=== PATIENT | female | born 1975 | race Caucasian/White ===

== ENCOUNTER 2016-11-18 13:44 | Emergency (ER) | payer OTHER ==
[~2016-11-18 13:44] MED LIST: ADVAIR DISKUS INH; ATIVAN1 MG PO; ATROVENT 0.06% IN; COMBIVENT RESPIMAT IN; FUROSEMIDE20 MG PO; HYDROCHLOROTH12.5 MG PO; LISINOPRIL20 MG PO; METFORMIN HCL500 MG PO; METOLAZONE5 MG PO; MULTIPLE VITAMIN PO; NEXIUM20 M1 PO; PERCOCET1 TA1 PO; PHENERGAN12.5 M1 PR; POTASSIUM CHLO10 ME2 PO; PREDNISONE10 MG PO; SEROQUEL100 MG PO; SINGULAIR10 M1 PO; SINGULAIR10 MG PO; SUBOXONE1 MI1 PO; TRILEPTAL600 MG PO; VENTOLIN HFA IN; VITAMIN D350000 UNIT PO; ZOFRAN ODT4 MG PO; ZYRTEC ALLERGY10 MG PO; antihypertensive
--- NOTE | 2016-11-18 14:48 | DIAGNOSTIC IMAGING REPORT ---
PROCEDURE: XR CHEST 2 VIEW INDICATION: COUGH TECHNIQUE: PA and lateral views. COMPARISON: None. FINDINGS: Right lower lobe infiltrate. Heart and mediastinum are normal. Thorax is normal. IMPRESSION: 1. Right lower lobe infiltrate.
--- NOTE | 2016-11-18 15:26 | ED NURSING NOTES ---
Clinical Report - Nurses [facility] [address] [place] [address] 11/18/2016 13:45 Patient: GEOVANNY FANG TRIAGE Triage time 1351 PM. Acuity: LEVEL 4. Chief Complaint: SHORTNESS OF BREATH, DIFFICULTY BREATHING, "ASTHMA ATTACK" and WHEEZING. Alert. No acute distress. LUCERO COMA SCORE: Lucero Coma Scale: 15- eyes open spontaneously (4); best verbal response- oriented x 4 (5); best motor response- obeys commands (6). --14:05 Coreen Quiros R.N. 13:54 11/18/16. BP: 154/96. HR: 111. RR: 22. O2 saturation: 92% on room air. Temp: 98.1 F (oral). Pain level now: 7/10. Additional comments: H/A. --14:05 Coreen Quiros R.N. Weight: 204.1 kg stated. Height/Length: 65 inches Per Patient. BMI: 75. --13:59 Coreen Quiros R.N. Medications Ativan Oral 1 mg, PRN. Atrovent HFA Inhalation. Metolazone Oral (Tablet 5 mg) 1 tablet, daily, started 06/21/16. Metolazone Oral (started yesterday). Phenergan (Promethazine) Rectal, as needed. Potassium Chloride ER Oral (Capsule Extended Release 10 meq) 1 capsule, daily. Seroquel Oral 300 mg, at bedtime. Singulair Oral 10 mg, daily. Suboxone Sublingual (Film 8-2 mg) 2 strips daily ("Is too strong, I only take 0.5 strip"). --13:57 Coreen Quiros R.N. Trileptal Oral 600 mg x 2 , at bedtime. Ventolin HFA Inhalation. Zofran Oral 4 mg, PRN. Zyrtec Oral 10 mg, daily. --13:57 Coreen Quiros R.N. Medication/allergy information source: the patient. --14:05 Coreen Quiros R.N. Allergies Bactrim. Definite Severe(swelling) Penicillins. Possible (Uncertain reaction--happened when very young) Sulfa Drugs. Side-Effect Severe(swelling) Theophylline. Definite Moderate (Racing HR) --13:57 Coreen Quiros R.N. History Arrived by EMS. Historian: patient. Primary [facility] ([facility] ( Pt states feeling sick for the past 3 days, with chills, fevers 101 abdominal pain, vomiting, diarrhea, with a headache. Came in by EMS due to symptoms getting worse with breathing.). Onset. (3 days). She has had fever, chills, a cough and wheezing. 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 EMS report reviewed. See report. Oxygen administered by nonrebreather mask and at 11 liters/minute. Pulse oximeter applied (100). PAST MEDICAL HX: Immunizations: up-to-date. Last normal menstrual period- 2 months IRREGULAR. No contraception. SOCIAL HX: Former smoker, end date 10/04/2013 (chewing tabocco). History of weekly drug use: marijuana. Recently used drugs yesterday. No alcohol use. She has not traveled outside the [place] ABUSE ASSESSMENT: No report of abuse. SELF HARM ASSESSMENT: A self harm assessment was performed. The patient answered "no" to the question "Do you have thoughts of harming or killing yourself?" and "Have you recently had thoughts about harming or killing others?". FALL RISK ASSESSMENT: Fall risk assessment completed. No fall risk identified. NUTRITIONAL RISK ASSESSMENT: The nutritional risk assessment revealed no deficiencies. FUNCTIONAL ASSESSMENT: Functional assessment: no impairments noted. LEARNING NEEDS ASSESSMENT: The learning needs assessment revealed no barriers. SKIN INTEGRITY ASSESSMENT: Skin integrity risk assessment completed. No skin integrity risk identified. --14:05 Coreen Quiros R.N. PROBLEMS: Hypomagnesemia. Diverticulitis. Muscle Spasm. Hypokalemia. Unstable Angina. Myocardial Infarction. Coronary Artery Disease. Lower Extremity Pain. Dizziness. Narcotic Withdrawal. Palpitations. Chest Pain. Lung Disease. Asthma. Depression. Diarrhea. Candidiasis. Hyponatremia. Vomiting. Pulmonary Hypertension. Gastroenteritis. Ovarian Cyst. Gastroesophageal Reflux Disease. Tension-Type Headache. Chest Wall Pain. COPD - Chronic Obstructive Pulmonary Disease. Hypertension. Constipation. Obesity. Abdominal Pain. Bipolar Disorder. Gastroesophageal Reflux. Environmental Allergies. Chronic Back Pain. Gallstone(s). Diabetes Mellitus. Immunizations. LNMP - Last Normal Menstrual Period. --13:58 Coreen Quiros R.N. ADDITIONAL SURGERIES: Cholecystectomy. --13:58 Coreen Quiros R.N. Interventions ID band on patient. --14:05 Coreen Quiros R.N. PHYSICAL ASSESSMENT To room via stretcher. GENERAL / NEURO / PSYCH: Alert. Oriented X 4. Appears in no acute distress. Appears anxious. HEENT: Mucous membranes are pink. RESPIRATORY: Mild respiratory distress. The patient can speak a few words at a time. Accessory muscle use. Decreased breath sounds in the bases bilaterally. CVS: Capillary refill less than 2 seconds. GI / : Abdomen soft and nontender. Bowel sounds within normal limits. SKIN: Skin is warm and dry. Normal skin turgor. --14:06 Coreen Quiros R.N. NURSING PROGRESS NOTES The initial plan of care for this patient has been created This plan of care was discussed with the patient. Oxygen administered by nasal cannula at 2 liters. Pulse oximeter and NIBP monitor placed on patient. Patient gowned. Reassurance given. Reassessment after oxygen administered. Two patient identifiers checked. Call light placed in reach. Side rails up x 1. Bed placed in lowest position. Brakes of bed on. --14:07 Coreen Quiros R.N. 14:06 11/18/16. HR: 105. RR: 18. O2 saturation: 95% on nasal cannula at 2 liters/minute. Pain level now: 10. --14:07 Coreen Quiros R.N. 14:25 11/18/2016 Site #1 started via IV in the right hand with an 22g angiocath; one attempt. Saline lock flushed with 10 mL saline. --14:35 Coreen Quiros R.N. 14:30 11/18/2016 SOLU-MEDROL (MethylPREDNISolone Sodium Succ) IVP 125 mg given over 2 minute(s) via site #1. Allergies verified and confirmed 5 rights. IV patency established. IV site checked: no pain, redness, or swelling. IV flushed thoroughly pre- and post-medication administration. IVP given by RN. --14:35 Coreen Quiros R.N. 14:30 11/18/2016 ALBUTEROL NEB W ATROVENT Neb TX 1 unit dose given. Given by the respiratory therapist. --14:45 Gingerluis enriqueCassius 14:40 11/18/2016 Albuterol Neb TX 2 unit dose given. Given by the respiratory therapist. --14:46 Cassius Norton 14:53 11/18/2016 Toradol IVP 30 mg given over 1 minute(s) via site #1. Allergies verified and confirmed 5 rights. IV patency established. IV site checked: no pain, redness, or swelling. IV flushed thoroughly pre- and post-medication administration. IVP given by RN. --14:53 Coreen Quiros R.N. 15:07 11/18/2016 Started 1 gm of Ceftriaxone IVPB in bag #1 50 mL; at 150 mL/hr over 30 minute(s) via site #1 via IV pump. Allergies verified and confirmed 5 rights. IV patency established. IV site checked: no pain, redness, or swelling. IV flushed thoroughly pre- and post-medication administration. --15:07 Coreen Quiros R.N. 15:07 11/18/2016 Toradol IVP Response: no adverse reaction symptoms have improved the patient feels better. --15:07 Coreen Quiros R.N. Pulse oximeter and NIBP monitor placed on patient. Reassurance given. Reassessment after oxygen administered and intervention. She has had no adverse reaction. 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 H/A down to a 3/10 pain, "breathing better" ceftriaxone infusing as ordered). RESPIRATORY: Denies difficulty breathing. No orthopnea. SKIN: Skin is warm. Skin color within normal limits. Call light placed in reach. --15:10 Coreen Quiros R.N. 15:07 11/18/16. BP: 132/79. HR: 110. RR: 18. O2 saturation: 96% on nasal cannula at 3 liters/minute. Pain level now: 3/10. --15:10 Coreen Quiros R.N. 15:36 11/18/2016 Ceftriaxone IVPB Discontinued: bag #1 completed. Total amount infused: 50 mL. IV patency established. IV site checked: no pain, redness, or swelling. IV flushed thoroughly. --15:41 Coreen Quiros R.N. 15:41 11/18/2016 Started bag #1 1000 mL IV Fluids IV NS (Saline); at 1000 mL/hr over 1 hour(s) via site #1 via IV pump. Allergies verified and confirmed 5 rights. IV patency established. IV site checked: no pain, redness, or swelling. IV flushed thoroughly pre- and post-medication administration. --15:41 Coreen Quiros R.N. Pulse oximeter and NIBP monitor placed on patient. Reassurance given. Reassessment after oxygen and fluids administered. She has had no adverse reaction. Overall patient status is improved- she states feels better. RESPIRATORY: Denies difficulty breathing. Call light placed in reach. --15:42 Coreen Quiros R.N. 15:41 11/18/16. BP: 110/70 (regular adult cuff) taken on the left arm, via an automated monitor, while lying. HR: 104. RR: 16. O2 saturation: 93% on room air. Pain level now: 11/28. --15:42 Coreen Quiros R.N. 16:38 11/18/16. BP: 133/87 (regular adult cuff) taken on the left arm, via an automated monitor, while sitting. HR: 90. RR: 18. O2 saturation: 98%. Pain level now: 10/31. --16:39 Coreen Quiros R.N. Pulse oximeter and NIBP monitor placed on patient. Reassurance given. Reassessment after oxygen administered and medication administered. She has had no adverse reaction. Overall patient status is improved- she states feels worse. GENERAL / NEURO / PSYCH: The patient reports anxiety. RESPIRATORY: The patient reports difficulty breathing. Decreased breath sounds in the bases bilaterally. CVS: Denies chest pain. Two patient identifiers checked. Call light placed in reach. --16:39 Coreen Quiros R.N. 16:49 11/18/2016 IV Fluids IV NS Discontinued: bag #1 completed upon discharge. Total amount infused: 1000 mL. IV patency established. IV site checked: no pain, redness, or swelling. IV flushed thoroughly. --16:54 Coreen Quiros R.N. DISPOSITION / DISCHARGE 16:52 11/18/2016 Site #1 removed upon discharge. Manual pressure and bandaid applied. --16:52 Coreen Quiros R.N. Departure time: 1653 PM. Condition at departure: improved and stable. The goals identified in the patient's plan of care were met. No learning barriers present. Discharge instructions provided and reviewed with the patient. Reviewed warnings (s/s of infection on LLE). Reviewed medication(s) side effects, precautions, dosing and course information. Prescription(s) given to the patient. Reviewed need for increased fluid intake. Activity restrictions (rest) reviewed. Patient verbalized understanding. Written instructions provided in French. The patient was discharged by the nurse practitioner. She was discharged home and accompanied by spouse. She left the Emergency Department ambulatory and via private vehicle. Spouse driving. FALL RISK ASSESSMENT: Fall risk assessment completed. No fall risk identified. LUCERO COMA SCORE: Lucero Coma Scale: 15- eyes open spontaneously (4); best verbal response- oriented x 4 (5); best motor response- obeys commands (6). --16:53 Coreen Quiros R.N. 16:51 11/18/16. BP: 148/88. HR: 100. RR: 18. O2 saturation: 99% on room air. Temp: 98.2 F (oral). Pain level now: 10/31. --16:53 Coreen Quiros R.N. Locked/Released at 11/18/2016 16:54 by Coreen Quiros R.N.
--- NOTE | 2016-11-18 15:26 | ED ORDER SUMMARY ---
..... Patient: GEOVANNY FANG OrderSheet [facility] VisitID: [id number] [place] [address] 41y, F Registration Date/Time: 11/18/2016 ORDER SHEET Weight: 204.1 kg (stated) Allergies: Bactrim, Penicillins, Sulfa Drugs, Theophylline GENERAL ORDERS: Chest 2V Urgent (14:06 11/18/2016 HBivens A.R.N.P.) (Ack 14:08 KHoerner) (14:14 EHassan R.N.) CBC w Diff Urgent (14:11/18/2016 HBivens A.R.N.P.) (Ack 14:08 KHoerner) (14:14 EHassan R.N.) CMP Urgent (14:11/18/2016 HBivens A.R.N.P.) (Ack 14:08 KHoerner) (14:14 EHassan R.N.) BNP Urgent (14:11/18/2016 HBivens A.R.N.P.) (Ack 14:08 KHoerner) (14:14 EHassan R.N.) MEDICATION ORDERS: Albuterol Neb w Atrovent 1 unit dose (NOW) (14:06 11/18/2016 HBivens A.R.N.P.) (Ack 14:15 KHoerner) (14:45 DBourey) Albuterol Neb Tx 2 unit doses (NOW) (14:11/18/2016 HBivens A.R.N.P.) (Ack 14:15 KHoerner) (14:46 DBourey) IV FLUIDS: IV Saline Lock (14:06 11/18/2016 HBivens A.R.N.P.) (14:35 EHassan R.N.) Solu-MEDROL IV 125 mg (NOW) (14:06 11/18/2016 HBivens A.R.N.P.) (14:35 EHassan R.N.) Toradol IV 30 mg (NOW) (14:52 11/18/2016 EHassan R.N. verbal order read back to HBivens A.R.N.P.) (14:53 Elena R.N.) Ceftriaxone IV 1 gm/50mL (NOW) (14:56 11/18/2016 HBivens A.R.N.P.) (15:07 Elena R.N.) IV NS : initial bolus 1000 mL (1000 mL/hr), then none - (NOW) (15:25 11/18/2016 HBivens A.R.N.P.) (15:41 Elena R.N.) ORDER SHEET NOTES: [Electronically signed by Coreen Quiros R.N. (16:54 11/18/2016)] [Electronically signed by Anny SilvermanRLottieN.PLottie (17:01 11/18/2016)] [Electronically locked/signed by Coreen Quiros R.N. (16:54 11/18/2016)]
--- NOTE | 2016-11-18 15:26 | ED CLINICAL REPORT ---
Clinical Report - Physicians/Mid Levels [facility] [address] [place] [address] 11/18/2016 13:45 Patient: GEOVANNY FANG Time Seen: 14:00; initial patient contact, initial documentation, patient care assumed. Arrived- By ambulance. Historian- patient. HISTORY OF PRESENT ILLNESS Chief Complaint: DYSPNEA, WHEEZING and HISTORY OF ASTHMA. This started about 3 days and is still present. The dyspnea is described as moderate. The patient has had a cough. She has had sputum production (can't get it up). See nurses notes for current asthma threapy. Asthma triggers: unknown. Takes asthma medications. Similar symptoms previously: Chronically. Recent medical care: Not recently seen/assessed. REVIEW OF SYSTEMS No nasal discharge or sinus drainage. She has had fever and chills. All systems otherwise negative, except as recorded above. PAST HISTORY See nurses notes. PROBLEMS: Hypomagnesemia. Diverticulitis. Muscle Spasm. Hypokalemia. Unstable Angina. Myocardial Infarction. Coronary Artery Disease. Lower Extremity Pain. Dizziness. Narcotic Withdrawal. Palpitations. Chest Pain. Lung Disease. Asthma. Depression. Diarrhea. Candidiasis. Hyponatremia. Vomiting. Pulmonary Hypertension. Gastroenteritis. Ovarian Cyst. Gastroesophageal Reflux Disease. Tension-Type Headache. Chest Wall Pain. COPD - Chronic Obstructive Pulmonary Disease. Hypertension. Constipation. Obesity. Abdominal Pain. Bipolar Disorder. Gastroesophageal Reflux. Environmental Allergies. Chronic Back Pain. Gallstone(s). Diabetes Mellitus. Immunizations. LNMP - Last Normal Menstrual Period. --13:58 Coreen Quiros RKatlyn. ADDITIONAL SURGERIES: Cholecystectomy. --13:58 Coreen Quiros R.N. SOCIAL HISTORY Smoker - current status unknown (chews). No alcohol use or drug use. No recent travel. Is a local resident. FAMILY HISTORY Negative. ADDITIONAL NOTES The nursing notes have been reviewed with agreement regarding the chief complaint, HPI, ROS, PMH and patient medications and allergies. PHYSICAL EXAM Vital Signs: 11/18/2016 13:54 BP: 154/96. HR: 111. RR: 22. O2 saturation: 92%. Temp: 98.1 F. Pain level now: 03/30. Have been reviewed as abnormal and appear to be correct. Blood pressure normal. Tachycardic. Respiratory rate normal. Temperature normal. Oxygen saturation low. Appearance: Alert. No acute distress. Eyes: Pupils equal, round and reactive to light. Eyes normal inspection. ENT: Ears normal. Nose normal. Pharynx normal. Uvula midline. Neck: Normal inspection. Neck supple. CVS: Normal heart rate and rhythm. Heart sounds normal. Pulses normal. Respiratory: No respiratory distress. Breath sounds abnormal. Mild bilateral rhonchi present diffusely. Abdomen: Severely obese (morbid). Back: Normal inspection. Skin: Skin warm and dry. Normal skin color. No rash. Normal skin turgor. Extremities: Extremities exhibit normal ROM. No lower extremity edema. Neuro: Oriented X 3. No motor deficit. No sensory deficit. LABS, X-RAYS, AND EKG Chest X-ray: Normal Chest X-Ray. (IMPRESSION: 1. Right lower lobe infiltrate. Electronically Final signed by:Tin Davenport MD 11/18/2016 2:51:47 PM). The X-rays were interpreted by the radiologist and contemporaneously by me. Laboratory Tests: CBC w Diff: (JORDI: 11/18/2016 14:55) ( MsgRcvd 11/18/2016 15:04) Final results Test Result Flag Units (Reference) WHITE BLOOD COUNT 6.9 K/uL (4.5-11.5) RED BLOOD COUNT 4.06 M/uL (4.00-5.20) HEMOGLOBIN 11.7 L gm/dL (12.0-16.0) HEMATOCRIT 34.5 L % (36.0-46.0) MEAN CELL VOLUME 85 fL (80-100) MEAN CORPUSCULAR HGB 29 pg (26-34) MEAN CORPUSCULAR HGB CONC 34 g/dL (31-37) RED CELL DISTRIBUTION WIDTH 16.1 H % (11.6-14.8) PLATELET COUNT 402 H K/uL (150-400) NEUTROPHIL % 78.7 H % (50-75) LYMPH % 14.9 L % (25-40) MONO % 5.8 % (3-14) EOSINOPHIL % 0.1 % (0-4) BASOPHIL % 0.5 % (0-2) BNP: (JORDI: 11/18/2016 14:55) ( AzgRcvd 11/18/2016 15:23) Final results Test Result Flag Units (Reference) B-TYPE NATRIURETIC PEPTIDE 14.8 pg/ml (5-100) CMP: (JORDI: 11/18/2016 14:55) ( MsgRcvd 11/18/2016 15:20) Final results Test Result Flag Units (Reference) GLUCOSE 147 H mg/dL (70-110) BUN 6 L mg/dL (7-18) CREATININE 0.7 mg/dL (0.6-1.3) Estimated GFR >60 mL/min Estimated GFR- >60 mL/min Note: Persistent reduction over 3 months in eGFR<60 mL/min/1.73 m2 defines CKD. Patients with eGFR values>=60 mL/min/1.73 m2 may also have CKD if evidence ofpersistent proteinuria. Additional information may be foundat www.kidney.org. SODIUM 129 L mmol/L (136-145) POTASSIUM 3.9 mmol/L (3.5-5.1) CHLORIDE 92 L mmol/L (98-107) CARBON DIOXIDE 30 mmol/L (21-32) CALCIUM 8.4 L mg/dL (8.5-10.1) TOTAL PROTEIN 6.8 g/dL (6.4-8.2) ALBUMIN 3.1 L g/dL (3.3-5.0) BILIRUBIN, TOTAL 0.5 mg/dL (0.0-1.0) ALKALINE PHOSPHATASE 91 U/L (46-116) AST (SGOT) 19 U/L (15-37) ALT (SGPT) 46 U/L (12-78) . PROGRESS AND PROCEDURES Course of Care: 1430. at bedside to check on pt, nurse reporting cellulitis to L lower leg, L lower leg with mild erythema and warmth 1500. Resp even and unlabored, B breath sounds, B mild rales heard lower lobes. Patient counseled in person regarding the patient's stable condition, test results and diagnosis. 15:26. Differential Diagnosis: I considered viral bronchitis, viral pneumonia, bacterial bronchitis, bacterial pneumonia, pertussis, bronchospasm and lung cancer as a possible cause of cough in this patient. This is a partial list of diagnoses considered. (asthma, flu, viral illness). Disposition: Discharged home in good and improved condition (15:26). Condition: good and stable. CLINICAL IMPRESSION Bronchopneumonia. Vital signs recorded and reviewed; empiric antibiotics given in the ED and prescribed. No hypoxemia, respiratory failure or sepsis. Mild hyponatremia INSTRUCTIONS Alternate Tylenol (Acetaminophen) and Motrin (Ibuprofen) for fever, temperature greater than 101 degrees orally. Take according to label instructions. Avoid tobacco smoke. Warnings: GENERAL WARNINGS: Return or contact your physician immediately if your condition worsens or changes unexpectedly, if not improving as expected, or if other problems arise. Specifically return if problem worsens. Prescription Medications: Prednisone 20 mg: take 3 orally every day for 5 days. Dispense fifteen (15). No refills. Zithromax 250 mg tablets: take 2 orally today, followed by 1 daily for the next 4 days. No refills. Substitution is permissible. Follow-up: Follow up with your doctor in about two days even if well. Call for an appointment. Summary of care provided to patient. Understanding of the discharge instructions verbalized by patient. (Electronically signed by Anny Silverman A.R.N.P. 11/18/2016 17:01)
--- NOTE | 2016-11-18 15:26 | ED ORDER SUMMARY ---
..... Patient: GEOVANNY FANG OrderSheet [facility] VisitID: [id number] [place] [address] 41y, F Registration Date/Time: 11/18/2016 ORDER SHEET Weight: 204.1 kg (stated) Allergies: Bactrim, Penicillins, Sulfa Drugs, Theophylline GENERAL ORDERS: Chest 2V Urgent (14:06 11/18/2016 HBivens A.R.N.P.) (Ack 14:08 KHoerner) (14:14 EHassan R.N.) CBC w Diff Urgent (14:11/18/2016 HBivens A.R.N.P.) (Ack 14:08 KHoerner) (14:14 EHassan R.N.) CMP Urgent (14:11/18/2016 HBivens A.R.N.P.) (Ack 14:08 KHoerner) (14:14 EHassan R.N.) BNP Urgent (14:11/18/2016 HBivens A.R.N.P.) (Ack 14:08 KHoerner) (14:14 EHassan R.N.) MEDICATION ORDERS: Albuterol Neb w Atrovent 1 unit dose (NOW) (14:06 11/18/2016 HBivens A.R.N.P.) (Ack 14:15 KHoerner) (14:45 DBourey) Albuterol Neb Tx 2 unit doses (NOW) (14:11/18/2016 HBivens A.R.N.P.) (Ack 14:15 KHoerner) (14:46 DBourey) IV FLUIDS: IV Saline Lock (14:06 11/18/2016 HBivens A.R.N.P.) (14:35 EHassan R.N.) Solu-MEDROL IV 125 mg (NOW) (14:06 11/18/2016 HBivens A.R.N.P.) (14:35 EHassan R.N.) Toradol IV 30 mg (NOW) (14:52 11/18/2016 EHassan R.N. verbal order read back to HBivens A.R.N.P.) (14:53 Elena R.N.) Ceftriaxone IV 1 gm/50mL (NOW) (14:56 11/18/2016 HBivens A.R.N.P.) (15:07 Elena R.N.) IV NS : initial bolus 1000 mL (1000 mL/hr), then none - (NOW) (15:25 11/18/2016 HBivens A.R.N.P.) (15:41 Elena R.N.) ORDER SHEET NOTES: [Electronically signed by Coreen Quiros R.N. (16:54 11/18/2016)] [Electronically signed by Anny SilvermanRLottieN.PLottie (17:01 11/18/2016)] [Electronically locked/signed by Coreen Quiros R.N. (16:54 11/18/2016)]
--- NOTE | 2016-11-18 17:01 | ED MAR SUMMARY ---
..... Medication Administration Record [facility] [address] [place] [address] Patient: GEOVANNY FANG Visit ID: [id number] 41y, F Weight: 204.1 kg Height/Length: 65 in BMI: 75 ALLERGIES: Bactrim, Penicillins, Sulfa Drugs, Theophylline Given 14:30 11/18/2016 Coreen Quiros R.N. Medication Administered: SOLU-MEDROL [IVP] (METHYLPREDNISOLONE SODIUM SUCC), Dose: 125 mg IVP over 2 minute(s), Site: #1 right hand. Medication Ordered: Solu-MEDROL IV 125 mg (NOW). Given 14:30 11/18/2016 Cassius Norton, Medication Administered: ALBUTEROL NEB W ATROVENT, Dose: 1 unit dose Neb TX. Medication Ordered: Albuterol Neb w Atrovent 1 unit dose (NOW). Given 14:40 11/18/2016 Cassius Norton, Medication Administered: ALBUTEROL [NEB TX], Dose: 2 unit dose Neb TX. Medication Ordered: Albuterol Neb Tx 2 unit doses (NOW). Given 14:53 11/18/2016 Coreen Quiros R.N. Medication Administered: TORADOL [IVP], Dose: 30 mg IVP over 1 minute(s), Site: #1 right hand. Medication Ordered: Toradol IV 30 mg (NOW). Start 15:07 11/18/2016 Coreen Quiros R.N., Stop 15:36 11/18/2016 Coreen Quiros R.N. Medication Administered: CEFTRIAXONE [IVPB], Dose: 1 gm IVPB over 30 minute(s), Rate: 150 mL/hr, Dispensed: 50 mL bag, Site: #1 right hand. Medication Ordered: Ceftriaxone IV 1 gm/50mL (NOW). Start 15:41 11/18/2016 Coreen Quiros R.N., Stop 16:49 11/18/2016 Coreen Quiros R.N. Medication Administered: IV NS (SALINE), Dose: IV Fluids over 1 hour(s), Rate: 1000 mL/hr, Dispensed: 1000 mL bag, Site: #1 right hand. Medication Ordered: IV NS : initial bolus 1000 mL (1000 mL/hr), then none - (NOW).
--- NOTE | 2016-11-18 17:01 | ED DISCHARGE INSTRUCTIONS ---
Patient: GEOVANNY FANG General Instructions [facility] VisitID: [id number] [place] [address] 41y, F Registration Date/Time: 11/18/2016 Bronchopneumonia. Vital signs recorded and reviewed; empiric antibiotics given in the ED and prescribed. No hypoxemia, respiratory failure or sepsis. Mild hyponatremia INSTRUCTIONS Alternate Tylenol (Acetaminophen) and Motrin (Ibuprofen) for fever, temperature greater than 101 degrees orally. Take according to label instructions. Avoid tobacco smoke. Warnings: GENERAL WARNINGS: Return or contact your physician immediately if your condition worsens or changes unexpectedly, if not improving as expected, or if other problems arise. Specifically return if problem worsens. Prescription Medications: Prednisone 20 mg: take 3 orally every day for 5 days. Dispense fifteen (15). No refills. Zithromax 250 mg tablets: take 2 orally today, followed by 1 daily for the next 4 days. No refills. Substitution is permissible. Follow-up: Follow up with your doctor in about two days even if well. Call for an appointment. Summary of care provided to patient. Understanding of the discharge instructions verbalized by patient. ADDITIONAL INFORMATION Pneumonia (Adult) Pneumonia is an infection deep within the lung, in the small air sacs (alveoli). It may be due to a virus or bacteria and is usually treated with an antibiotic. Severe cases require treatment in the hospital. Milder cases can be treated at home. Symptoms usually start to improve during the first2 days of treatment. Home Care: Rest at home for the first 23 days or until you feel stronger. When resuming activity, dont let yourself become overly tired. Avoid exposure to cigarette smoke (yours or others). You may use acetaminophen (Tylenol) or ibuprofen (Motrin, Advil) to control fever or pain, unless another medicine was prescribed. [NOTE: If you have chronic liver or kidney disease or ever had a stomach ulcer or GI bleeding, talk with your doctor before using these medicines.] (Aspirin should never be used in anyone under 18 years of age who is ill with a fever. It may cause severe liver damage.) Your appetite may be poor so a light diet is fine. Keep well hydrated by drinking 68 glasses of fluids per day (water, sport drinks such as Gatorade, sodas without caffeine, juices, tea, soup, etc.). This will help loosen secretions in the lung, making it easier for you to cough up the phlegm (sputum). If you also have heart or kidney disease, check with your doctor before you drink extra amounts of fluids. Finish all antibiotic medicine prescribed, even if you are feeling better after a few days. Follow Up with your doctor in the next 23 days (or as advised) to be sure you are responding properly to the medicine. [NOTE: If you are age 65 or older, or if you have chronic lung disease (asthma, emphysema or COPD), we recommendthe pneumococcal vaccination and a yearlyinfluenzavaccination(flu-shot) every . Ask your doctor about this.] Get Prompt Medical Attention if any of the following occur: Not getting better within the first 48 hours of treatment Increasing shortness of breath or rapid breathing (over 25 breaths/minute) Coughing up blood or increasing chest pain with breathing Fever of 100.4F (38C) oral or higher, not better with fever medication Increasing weakness, dizziness or fainting Increasing thirst or dry mouth Sinus pain, headache or a stiff neck Chest pain not caused by coughing Hyponatremia Hyponatremia means low sodium levels in the blood. This condition most often occurs after prolonged vomiting or diarrhea. It can also result from the use of diuretics (water pills) or drinking excess amounts of water. Mild hyponatremia causes no symptoms. It is only discovered with a blood test. As sodium levels in the blood decreases, symptoms begin to appear. This includes weakness, confusion, muscle cramping and seizures. Home Care: 1) Reduce your daily water intake until the problem is corrected. 2) If you have been taking diuretics, you may be asked to stop taking them for a short time. 3) If you are having symptoms of weakness or confusion, do not drive or operate dangerous machinery until symptoms resolve. Follow Up with your doctor for a repeat blood test within the next week unless told otherwise. Get Prompt Medical Attention if any of the following occur: -- Increasing weakness -- Dizziness -- Irregular heartbeat, extra beats or very fast heart rate -- Fainting spell Fever Control (Adult) A fever is a natural reaction of the body to an illness. In most cases, the temperature itself is not harmful. It actually helps the body fight infections. A fever does not need to be treated unless you feel very uncomfortable. Home Care If you feel warm, check your temperature. If you feel very uncomfortable and your temperature is at or higher than 100.4F (38C) oral, you may take acetaminophen (Tylenol) every 4 to 6 hours. If you cant take or keep down oral medicine, ask your pharmacist for Tylenol suppositories, which you can get without a prescription. If the fever does not respond to acetaminophen within 1 hour, take ibuprofen (Advil or Motrin). If this works, keep taking the ibuprofen every 6 to 8 hours. Note: If you have chronic liver or kidney disease or ever had a stomach ulcer or GI bleeding, talk with your doctor before using these medications. If either medication alone does not keep the fever down, you may alternate the two medicines every 3 to 4 hours, only if your healthcare provider has instructed you to do so. For example, take Motrin then wait 3 hours, take Tylenol then wait 3 hours, take Motrin, and so on. Follow your healthcare providers instructions exactly. Clothing: Keep clothing light because excess body heat is lost through the skin. The fever will go up if you wear extra layers or wrap in blankets. Fluids: Fever causes the body to lose water through evaporation. Drink plenty of fluids such as water, juice, clear sodas, edel dain, or lemonade. Do not use aspirin in anyone under 18 years of age who is ill with a fever. It can cause severe liver damage. Follow Up with your doctor or as advised by our staff if you do not get better after 48 hours. Get Prompt Medical Attention if any of the following occur: Fever does not get better after taking fever medication Fast or difficult breathing Earache, sinus pain, stiff or painful neck, headache, repeated diarrhea or vomiting You feel unusually irritable, drowsy, or confused A rash appears You feel weak or dizzy, or that you might faint Prednisone Oral tablet What is this medicine? PREDNISONE (PRED ni sone) is a corticosteroid. It is commonly used to treat inflammation of the skin, joints, lungs, and other organs. Common conditions treated include asthma, allergies, and arthritis. It is also used for other conditions, such as blood disorders and diseases of the adrenal glands. How should I use this medicine? Take this medicine by mouth with a glass of water. Follow the directions on the prescription label. Take this medicine with food. If you are taking this medicine once a day, take it in the morning. Do not take more medicine than you are told to take. Do not suddenly stop taking your medicine because you may develop a severe reaction. Your doctor will tell you how much medicine to take. If your doctor wants you to stop the medicine, the dose may be slowly lowered over time to avoid any side effects. Talk to your sharepoint solutions developer regarding the use of this medicine in children. Special care may be needed. What side effects may I notice from receiving this medicine? Side effects that you should report to your doctor or health intensive care medicine specialist as soon as possible: allergic reactions like skin rash, itching or hives, swelling of the face, lips, or tongue changes in emotions or moods changes in vision depressed mood eye pain fever or chills, cough, sore throat, pain or difficulty passing urine increased thirst swelling of ankles, feet Side effects that usually do not require medical attention (report to your doctor or health intensive care medicine specialist if they continue or are bothersome): confusion, excitement, restlessness headache nausea, vomiting skin problems, acne, thin and shiny skin trouble sleeping weight gain What may interact with this medicine? Do not take this medicine with any of the following medications: metyrapone mifepristone This medicine may also interact with the following medications: aminoglutethimide amphotericin B aspirin and aspirin-like medicines barbiturates certain medicines for diabetes, like glipizide or glyburide cholestyramine cholinesterase inhibitors cyclosporine digoxin diuretics ephedrine female hormones, like estrogens and control pills isoniazid ketoconazole NSAIDS, medicines for pain and inflammation, like ibuprofen or naproxen phenytoin rifampin toxoids vaccines warfarin What if I miss a dose? If you miss a dose, take it as soon as you can. If it is almost time for your next dose, talk to your doctor or health intensive care medicine specialist. You may need to miss a dose or take an extra dose. Do not take double or extra doses without advice. Where should I keep my medicine? Keep out of the reach of children. Store at room temperature between 15 and 30 degrees C (59 and 86 degrees F). Protect from light. Keep container tightly closed. Throw away any unused medicine after the expiration date. What should I tell my health care provider before I take this medicine? They need to know if you have any of these conditions: Buffalo's syndrome diabetes glaucoma heart disease high blood pressure infection (especially a virus infection such as chickenpox, cold sores, or herpes) kidney disease liver disease mental illness myasthenia gravis osteoporosis seizures stomach or intestine problems thyroid disease an unusual or allergic reaction to lactose, prednisone, other medicines, foods, dyes, or preservatives or trying to get breast-feeding What should I watch for while using this medicine? Visit your doctor or health intensive care medicine specialist for regular checks on your progress. If you are taking this medicine over a prolonged period, carry an identification card with your name and address, the type and dose of your medicine, and your doctor's name and address. This medicine may increase your risk of getting an infection. Tell your doctor or health intensive care medicine specialist if you are around anyone with measles or chickenpox, or if you develop sores or blisters that do not heal properly. If you are going to have surgery, tell your doctor or health intensive care medicine specialist that you have taken this medicine within the last twelve months. Ask your doctor or health intensive care medicine specialist about your diet. You may need to lower the amount of salt you eat. This medicine may affect blood sugar levels. If you have diabetes, check with your doctor or health intensive care medicine specialist before you change your diet or the dose of your diabetic medicine. Azithromycin Oral tablet What is this medicine? AZITHROMYCIN (az ith marshajorge VOGT sin) is a macrolide antibiotic. It is used to treat or prevent certain kinds of bacterial infections. It will not work for colds, flu, or other viral infections. How should I use this medicine? Take this medicine by mouth with a full glass of water. Follow the directions on the prescription label. The tablets can be taken with food or on an empty stomach. If the medicine upsets your stomach, take it with food. Take your medicine at regular intervals. Do not take your medicine more often than directed. Take all of your medicine as directed even if you think your are better. Do not skip doses or stop your medicine early. Talk to your sharepoint solutions developer regarding the use of this medicine in children. Special care may be needed. What side effects may I notice from receiving this medicine? Side effects that you should report to your doctor or health intensive care medicine specialist as soon as possible: allergic reactions like skin rash, itching or hives, swelling of the face, lips, or tongue confusion, nightmares or hallucinations dark urine difficulty breathing hearing loss irregular heartbeat or chest pain pain or difficulty passing urine redness, blistering, peeling or loosening of the skin, including inside the mouth white patches or sores in the mouth yellowing of the eyes or skin Side effects that usually do not require medical attention (report to your doctor or health intensive care medicine specialist if they continue or are bothersome): diarrhea dizziness, drowsiness headache stomach upset or vomiting tooth discoloration vaginal irritation What may interact with this medicine? Do not take this medicine with any of the following medications: lincomycin This medicine may also interact with the following medications: amiodarone antacids cyclosporine digoxin magnesium nelfinavir phenytoin warfarin What if I miss a dose? If you miss a dose, take it as soon as you can. If it is almost time for your next dose, take only that dose. Do not take double or extra doses. Where should I keep my medicine? Keep out of the reach of children. Store at room temperature between 15 and 30 degrees C (59 and 86 degrees F). Throw away any unused medicine after the expiration date. What should I tell my health care provider before I take this medicine? They need to know if you have any of these conditions: kidney disease liver disease irregular heartbeat or heart disease an unusual or allergic reaction to azithromycin, erythromycin, other macrolide antibiotics, foods, dyes, or preservatives or trying to get breast-feeding What should I watch for while using this medicine? Tell your doctor or health intensive care medicine specialist if your symptoms do not improve. Do not treat diarrhea with over the counter products. Contact your doctor if you have diarrhea that lasts more than 2 days or if it is severe and watery. This medicine can make you more sensitive to the sun. Keep out of the sun. If you cannot avoid being in the sun, wear protective clothing and use sunscreen. Do not use sun lamps or tanning beds/booths. You have been given the following additional information: Pneumonia (Adult) Hyponatremia Fever Control (Adult) Prednisone Oral tablet Azithromycin Oral tablet (Electronically signed by Anny Silverman A.R.N.P. 11/18/2016 17:01)
--- NOTE | 2016-11-18 17:01 | ED MAR SUMMARY ---
..... Medication Administration Record [facility] [address] [place] [address] Patient: GEOVANNY FANG Visit ID: [id number] 41y, F Weight: 204.1 kg Height/Length: 65 in BMI: 75 ALLERGIES: Bactrim, Penicillins, Sulfa Drugs, Theophylline Given 14:30 11/18/2016 Coreen Quiros R.N. Medication Administered: SOLU-MEDROL [IVP] (METHYLPREDNISOLONE SODIUM SUCC), Dose: 125 mg IVP over 2 minute(s), Site: #1 right hand. Medication Ordered: Solu-MEDROL IV 125 mg (NOW). Given 14:30 11/18/2016 Cassius Norton, Medication Administered: ALBUTEROL NEB W ATROVENT, Dose: 1 unit dose Neb TX. Medication Ordered: Albuterol Neb w Atrovent 1 unit dose (NOW). Given 14:40 11/18/2016 Cassius Norton, Medication Administered: ALBUTEROL [NEB TX], Dose: 2 unit dose Neb TX. Medication Ordered: Albuterol Neb Tx 2 unit doses (NOW). Given 14:53 11/18/2016 Coreen Quiros R.N. Medication Administered: TORADOL [IVP], Dose: 30 mg IVP over 1 minute(s), Site: #1 right hand. Medication Ordered: Toradol IV 30 mg (NOW). Start 15:07 11/18/2016 Coreen Quiros R.N., Stop 15:36 11/18/2016 Coreen Quiros R.N. Medication Administered: CEFTRIAXONE [IVPB], Dose: 1 gm IVPB over 30 minute(s), Rate: 150 mL/hr, Dispensed: 50 mL bag, Site: #1 right hand. Medication Ordered: Ceftriaxone IV 1 gm/50mL (NOW). Start 15:41 11/18/2016 Coreen Quiros R.N., Stop 16:49 11/18/2016 Coreen Quiros R.N. Medication Administered: IV NS (SALINE), Dose: IV Fluids over 1 hour(s), Rate: 1000 mL/hr, Dispensed: 1000 mL bag, Site: #1 right hand. Medication Ordered: IV NS : initial bolus 1000 mL (1000 mL/hr), then none - (NOW).
--- NOTE | 2016-11-18 17:01 | ED MED RECONCILIATION SUMMARY ---
Patient: GEOVANNY FANG Medication Reconciliation Report [facility] VisitID: [id number] [address] [place] [address] 41y, F Registration Date/Time: 11/18/2016 Weight: 204.1 kg Height/Length: 65 in. BMI: 75.0 ALLERGIES: Bactrim, Penicillins, Sulfa Drugs, Theophylline The patient's Home Medications are listed below: THE FOLLOWING MEDICATIONS NEED TO BE RECONCILED: Ativan Oral 1 mg, PRN Atrovent HFA Inhalation Metolazone Oral (5 mg) 1 tablet, daily Metolazone Oral, started yesterday Phenergan (Promethazine) Rectal Potassium Chloride ER Oral (10 meq) 1 capsule, daily Seroquel Oral 300 mg, at bedtime Singulair Oral 10 mg, daily Suboxone Sublingual (8-2 mg) 2 strips daily , "Is too strong, I only take 0.5 strip" Trileptal Oral 600 mg x 2 , at bedtime Ventolin HFA Inhalation Zofran Oral 4 mg, PRN Zyrtec Oral 10 mg, daily The source(s) of the original Home Medication information: patient The following Medications were given to the patient in the Emergency Department: SOLU-MEDROL [IVP] IVP 125 mg, administered: 11/18/2016 2:30:00 PM ALBUTEROL NEB W ATROVENT Neb [place] 1 unit dose, administered: 11/18/2016 2:30:00 PM Albuterol [Neb Tx] Neb TX 2 unit dose, administered: 11/18/2016 2:40:00 PM Toradol [IVP] IVP 30 mg, administered: 11/18/2016 2:53:00 PM Ceftriaxone [IVPB] IVPB bolus 0, then 1 gm 150 mL/hr, administered: 11/18/2016 3:07:00 PM IV NS IV Fluids bolus 0, then 1000 mL/hr, administered: 11/18/2016 3:41:00 PM The following Medications were prescribed to the patient: Prednisone 20 mg: take 3 orally every day for 5 days. Dispense fifteen (15). No refills. -- Anny Silverman, FabiánNLottieP. Zithromax 250 mg tablets: take 2 orally today, followed by 1 daily for the next 4 days. No refills. Substitution is permissible. -- Anny Silverman A.R.N.P.
--- NOTE | 2016-11-18 17:01 | ED MED RECONCILIATION SUMMARY ---
Patient: GEOVANNY FANG Medication Reconciliation Report [facility] VisitID: [id number] [place] [address] 41y, F Registration Date/Time: 11/18/2016 Weight: 204.1 kg Height/Length: 65 in. BMI: 75.0 ALLERGIES: Bactrim, Penicillins, Sulfa Drugs, Theophylline The patient's Home Medications are listed below: THE FOLLOWING MEDICATIONS NEED TO BE RECONCILED: Ativan Oral 1 mg, PRN Atrovent HFA Inhalation Metolazone Oral (5 mg) 1 tablet, daily Metolazone Oral, started yesterday Phenergan (Promethazine) Rectal Potassium Chloride ER Oral (10 meq) 1 capsule, daily Seroquel Oral 300 mg, at bedtime Singulair Oral 10 mg, daily Suboxone Sublingual (8-2 mg) 2 strips daily , "Is too strong, I only take 0.5 strip" Trileptal Oral 600 mg x 2 , at bedtime Ventolin HFA Inhalation Zofran Oral 4 mg, PRN Zyrtec Oral 10 mg, daily The source(s) of the original Home Medication information: patient The following Medications were given to the patient in the Emergency Department: SOLU-MEDROL [IVP] IVP 125 mg, administered: 11/18/2016 2:30:00 PM ALBUTEROL NEB W ATROVENT Neb [place] 1 unit dose, administered: 11/18/2016 2:30:00 PM Albuterol [Neb Tx] Neb TX 2 unit dose, administered: 11/18/2016 2:40:00 PM Toradol [IVP] IVP 30 mg, administered: 11/18/2016 2:53:00 PM Ceftriaxone [IVPB] IVPB bolus 0, then 1 gm 150 mL/hr, administered: 11/18/2016 3:07:00 PM IV NS IV Fluids bolus 0, then 1000 mL/hr, administered: 11/18/2016 3:41:00 PM The following Medications were prescribed to the patient: Prednisone 20 mg: take 3 orally every day for 5 days. Dispense fifteen (15). No refills. -- Anny Silverman, FabiánNLottieP. Zithromax 250 mg tablets: take 2 orally today, followed by 1 daily for the next 4 days. No refills. Substitution is permissible. -- Anny Silverman A.R.N.P.
--- NOTE | 2016-11-18 17:01 | ED DISCHARGE INSTRUCTIONS ---
Patient: GEOVANNY FANG General Instructions [facility] VisitID: [id number] [place] [address] 41y, F Registration Date/Time: 11/18/2016 Bronchopneumonia. Vital signs recorded and reviewed; empiric antibiotics given in the ED and prescribed. No hypoxemia, respiratory failure or sepsis. Mild hyponatremia INSTRUCTIONS Alternate Tylenol (Acetaminophen) and Motrin (Ibuprofen) for fever, temperature greater than 101 degrees orally. Take according to label instructions. Avoid tobacco smoke. Warnings: GENERAL WARNINGS: Return or contact your physician immediately if your condition worsens or changes unexpectedly, if not improving as expected, or if other problems arise. Specifically return if problem worsens. Prescription Medications: Prednisone 20 mg: take 3 orally every day for 5 days. Dispense fifteen (15). No refills. Zithromax 250 mg tablets: take 2 orally today, followed by 1 daily for the next 4 days. No refills. Substitution is permissible. Follow-up: Follow up with your doctor in about two days even if well. Call for an appointment. Summary of care provided to patient. Understanding of the discharge instructions verbalized by patient. ADDITIONAL INFORMATION Pneumonia (Adult) Pneumonia is an infection deep within the lung, in the small air sacs (alveoli). It may be due to a virus or bacteria and is usually treated with an antibiotic. Severe cases require treatment in the hospital. Milder cases can be treated at home. Symptoms usually start to improve during the first2 days of treatment. Home Care: Rest at home for the first 23 days or until you feel stronger. When resuming activity, dont let yourself become overly tired. Avoid exposure to cigarette smoke (yours or others). You may use acetaminophen (Tylenol) or ibuprofen (Motrin, Advil) to control fever or pain, unless another medicine was prescribed. [NOTE: If you have chronic liver or kidney disease or ever had a stomach ulcer or GI bleeding, talk with your doctor before using these medicines.] (Aspirin should never be used in anyone under 18 years of age who is ill with a fever. It may cause severe liver damage.) Your appetite may be poor so a light diet is fine. Keep well hydrated by drinking 68 glasses of fluids per day (water, sport drinks such as Gatorade, sodas without caffeine, juices, tea, soup, etc.). This will help loosen secretions in the lung, making it easier for you to cough up the phlegm (sputum). If you also have heart or kidney disease, check with your doctor before you drink extra amounts of fluids. Finish all antibiotic medicine prescribed, even if you are feeling better after a few days. Follow Up with your doctor in the next 23 days (or as advised) to be sure you are responding properly to the medicine. [NOTE: If you are age 65 or older, or if you have chronic lung disease (asthma, emphysema or COPD), we recommendthe pneumococcal vaccination and a yearlyinfluenzavaccination(flu-shot) every . Ask your doctor about this.] Get Prompt Medical Attention if any of the following occur: Not getting better within the first 48 hours of treatment Increasing shortness of breath or rapid breathing (over 25 breaths/minute) Coughing up blood or increasing chest pain with breathing Fever of 100.4F (38C) oral or higher, not better with fever medication Increasing weakness, dizziness or fainting Increasing thirst or dry mouth Sinus pain, headache or a stiff neck Chest pain not caused by coughing Hyponatremia Hyponatremia means low sodium levels in the blood. This condition most often occurs after prolonged vomiting or diarrhea. It can also result from the use of diuretics (water pills) or drinking excess amounts of water. Mild hyponatremia causes no symptoms. It is only discovered with a blood test. As sodium levels in the blood decreases, symptoms begin to appear. This includes weakness, confusion, muscle cramping and seizures. Home Care: 1) Reduce your daily water intake until the problem is corrected. 2) If you have been taking diuretics, you may be asked to stop taking them for a short time. 3) If you are having symptoms of weakness or confusion, do not drive or operate dangerous machinery until symptoms resolve. Follow Up with your doctor for a repeat blood test within the next week unless told otherwise. Get Prompt Medical Attention if any of the following occur: -- Increasing weakness -- Dizziness -- Irregular heartbeat, extra beats or very fast heart rate -- Fainting spell Fever Control (Adult) A fever is a natural reaction of the body to an illness. In most cases, the temperature itself is not harmful. It actually helps the body fight infections. A fever does not need to be treated unless you feel very uncomfortable. Home Care If you feel warm, check your temperature. If you feel very uncomfortable and your temperature is at or higher than 100.4F (38C) oral, you may take acetaminophen (Tylenol) every 4 to 6 hours. If you cant take or keep down oral medicine, ask your pharmacist for Tylenol suppositories, which you can get without a prescription. If the fever does not respond to acetaminophen within 1 hour, take ibuprofen (Advil or Motrin). If this works, keep taking the ibuprofen every 6 to 8 hours. Note: If you have chronic liver or kidney disease or ever had a stomach ulcer or GI bleeding, talk with your doctor before using these medications. If either medication alone does not keep the fever down, you may alternate the two medicines every 3 to 4 hours, only if your healthcare provider has instructed you to do so. For example, take Motrin then wait 3 hours, take Tylenol then wait 3 hours, take Motrin, and so on. Follow your healthcare providers instructions exactly. Clothing: Keep clothing light because excess body heat is lost through the skin. The fever will go up if you wear extra layers or wrap in blankets. Fluids: Fever causes the body to lose water through evaporation. Drink plenty of fluids such as water, juice, clear sodas, edel dain, or lemonade. Do not use aspirin in anyone under 18 years of age who is ill with a fever. It can cause severe liver damage. Follow Up with your doctor or as advised by our staff if you do not get better after 48 hours. Get Prompt Medical Attention if any of the following occur: Fever does not get better after taking fever medication Fast or difficult breathing Earache, sinus pain, stiff or painful neck, headache, repeated diarrhea or vomiting You feel unusually irritable, drowsy, or confused A rash appears You feel weak or dizzy, or that you might faint Prednisone Oral tablet What is this medicine? PREDNISONE (PRED ni sone) is a corticosteroid. It is commonly used to treat inflammation of the skin, joints, lungs, and other organs. Common conditions treated include asthma, allergies, and arthritis. It is also used for other conditions, such as blood disorders and diseases of the adrenal glands. How should I use this medicine? Take this medicine by mouth with a glass of water. Follow the directions on the prescription label. Take this medicine with food. If you are taking this medicine once a day, take it in the morning. Do not take more medicine than you are told to take. Do not suddenly stop taking your medicine because you may develop a severe reaction. Your doctor will tell you how much medicine to take. If your doctor wants you to stop the medicine, the dose may be slowly lowered over time to avoid any side effects. Talk to your parts runner regarding the use of this medicine in children. Special care may be needed. What side effects may I notice from receiving this medicine? Side effects that you should report to your doctor or health hospice home care coordinator as soon as possible: allergic reactions like skin rash, itching or hives, swelling of the face, lips, or tongue changes in emotions or moods changes in vision depressed mood eye pain fever or chills, cough, sore throat, pain or difficulty passing urine increased thirst swelling of ankles, feet Side effects that usually do not require medical attention (report to your doctor or health hospice home care coordinator if they continue or are bothersome): confusion, excitement, restlessness headache nausea, vomiting skin problems, acne, thin and shiny skin trouble sleeping weight gain What may interact with this medicine? Do not take this medicine with any of the following medications: metyrapone mifepristone This medicine may also interact with the following medications: aminoglutethimide amphotericin B aspirin and aspirin-like medicines barbiturates certain medicines for diabetes, like glipizide or glyburide cholestyramine cholinesterase inhibitors cyclosporine digoxin diuretics ephedrine female hormones, like estrogens and control pills isoniazid ketoconazole NSAIDS, medicines for pain and inflammation, like ibuprofen or naproxen phenytoin rifampin toxoids vaccines warfarin What if I miss a dose? If you miss a dose, take it as soon as you can. If it is almost time for your next dose, talk to your doctor or health hospice home care coordinator. You may need to miss a dose or take an extra dose. Do not take double or extra doses without advice. Where should I keep my medicine? Keep out of the reach of children. Store at room temperature between 15 and 30 degrees C (59 and 86 degrees F). Protect from light. Keep container tightly closed. Throw away any unused medicine after the expiration date. What should I tell my health care provider before I take this medicine? They need to know if you have any of these conditions: [place]'s syndrome diabetes glaucoma heart disease high blood pressure infection (especially a virus infection such as chickenpox, cold sores, or herpes) kidney disease liver disease mental illness myasthenia gravis osteoporosis seizures stomach or intestine problems thyroid disease an unusual or allergic reaction to lactose, prednisone, other medicines, foods, dyes, or preservatives or trying to get breast-feeding What should I watch for while using this medicine? Visit your doctor or health hospice home care coordinator for regular checks on your progress. If you are taking this medicine over a prolonged period, carry an identification card with your name and address, the type and dose of your medicine, and your doctor's name and address. This medicine may increase your risk of getting an infection. Tell your doctor or health hospice home care coordinator if you are around anyone with measles or chickenpox, or if you develop sores or blisters that do not heal properly. If you are going to have surgery, tell your doctor or health hospice home care coordinator that you have taken this medicine within the last twelve months. Ask your doctor or health hospice home care coordinator about your diet. You may need to lower the amount of salt you eat. This medicine may affect blood sugar levels. If you have diabetes, check with your doctor or health hospice home care coordinator before you change your diet or the dose of your diabetic medicine. Azithromycin Oral tablet What is this medicine? AZITHROMYCIN (az ith marshajorge VOGT sin) is a macrolide antibiotic. It is used to treat or prevent certain kinds of bacterial infections. It will not work for colds, flu, or other viral infections. How should I use this medicine? Take this medicine by mouth with a full glass of water. Follow the directions on the prescription label. The tablets can be taken with food or on an empty stomach. If the medicine upsets your stomach, take it with food. Take your medicine at regular intervals. Do not take your medicine more often than directed. Take all of your medicine as directed even if you think your are better. Do not skip doses or stop your medicine early. Talk to your parts runner regarding the use of this medicine in children. Special care may be needed. What side effects may I notice from receiving this medicine? Side effects that you should report to your doctor or health hospice home care coordinator as soon as possible: allergic reactions like skin rash, itching or hives, swelling of the face, lips, or tongue confusion, nightmares or hallucinations dark urine difficulty breathing hearing loss irregular heartbeat or chest pain pain or difficulty passing urine redness, blistering, peeling or loosening of the skin, including inside the mouth white patches or sores in the mouth yellowing of the eyes or skin Side effects that usually do not require medical attention (report to your doctor or health hospice home care coordinator if they continue or are bothersome): diarrhea dizziness, drowsiness headache stomach upset or vomiting tooth discoloration vaginal irritation What may interact with this medicine? Do not take this medicine with any of the following medications: lincomycin This medicine may also interact with the following medications: amiodarone antacids cyclosporine digoxin magnesium nelfinavir phenytoin warfarin What if I miss a dose? If you miss a dose, take it as soon as you can. If it is almost time for your next dose, take only that dose. Do not take double or extra doses. Where should I keep my medicine? Keep out of the reach of children. Store at room temperature between 15 and 30 degrees C (59 and 86 degrees F). Throw away any unused medicine after the expiration date. What should I tell my health care provider before I take this medicine? They need to know if you have any of these conditions: kidney disease liver disease irregular heartbeat or heart disease an unusual or allergic reaction to azithromycin, erythromycin, other macrolide antibiotics, foods, dyes, or preservatives or trying to get breast-feeding What should I watch for while using this medicine? Tell your doctor or health hospice home care coordinator if your symptoms do not improve. Do not treat diarrhea with over the counter products. Contact your doctor if you have diarrhea that lasts more than 2 days or if it is severe and watery. This medicine can make you more sensitive to the sun. Keep out of the sun. If you cannot avoid being in the sun, wear protective clothing and use sunscreen. Do not use sun lamps or tanning beds/booths. You have been given the following additional information: Pneumonia (Adult) Hyponatremia Fever Control (Adult) Prednisone Oral tablet Azithromycin Oral tablet (Electronically signed by Anny Silverman A.R.N.P. 11/18/2016 17:01)
== END 2016-11-18 16:52 | disposition home or self-care (01) ==
LOC: ED SRH 13:44
DX: J18.0 Bronchopneumonia, unspecified organism (principal); E87.1 Hypo-osmolality and hyponatremia; I10 Essential (primary) hypertension; J44.9 Chronic obstructive pulmonary disease, unspecified; E11.9 Type 2 diabetes mellitus without complications
CPT/HCPCS: 90074; 90100; 91320; 95059

== ENCOUNTER 2016-12-05 20:14 | Emergency (ER) | payer OTHER ==
--- NOTE | 2016-12-08 11:03 | ED DISCHARGE INSTRUCTIONS ---
Patient: GEOVANNY FANG General Instructions [facility] VisitID: [id number] [place] [address] 41y, F Registration Date/Time: 12/05/2016 Cellulitis of the right lower leg, right ankle and left lower leg. Bilateral leg edema. INSTRUCTIONS Warnings: Further evaluation is necessary. GENERAL WARNINGS: Return or contact your physician immediately if your condition worsens or changes unexpectedly, if not improving as expected, or if other problems arise. Prescription Medications: HCTZ 25 mg: take 1 orally every 24 hours. Dispense five (5). No refills. Levaquin 500 mg: take 1 tablet orally every 24 hours for 10 days. No refills. Substitution is permissible. Follow-up: Return to the emergency department If getting worse. Follow up with your doctor Thursday in four days. Call for the next available appointment. Understanding of the discharge instructions verbalized by patient. ADDITIONAL INFORMATION Cellulitis You have an infection of the skin known as cellulitis. This usually starts with a scrape, cut, insect bite, blister or other opening in the skin which becomes infected. This is a serious condition. It must be watched closely to be sure the infection is not spreading. With antibiotic treatment, the size of the red area will gradually shrink in size until the skin returns to normal. This will take 7-10 days. The red area should never increase in size once the antibiotic medicine has been started. Occasionally, an infection will be resistant to one antibiotic and another one will have to be used. Home Care: 1) Limit the use of the affected part, since excess movement can cause the infection to spread. 2) If the infection is on your leg, walk as little as possible during the first few days of the treatment. Keep your leg elevated while sitting. This will reduce swelling. 3) Take all of the antibiotic medicine exactly as directed until it is gone. Be careful not to miss any doses, especially during the first seven days. Follow Up with your doctor or this facility as directed. Check the infected area daily for the warning signs listed below. Get Prompt Medical Attention if any of the following occur: -- Spreading area of redness -- Increasing swelling or pain -- Appearance of pus or drainage -- Fever over 100.4 F (38.0 C) oral, or over 101.4 F (38.6 C) rectal, after two days on antibiotics Hydrochlorothiazide Oral tablet What is this medicine? HYDROCHLOROTHIAZIDE (dwight droe klor oh THYE a zide) is a diuretic. It increases the amount of urine passed, which causes the body to lose salt and water. This medicine is used to treat high blood pressure. It is also reduces the swelling and water retention caused by various medical conditions, such as heart, liver, or kidney disease. How should I use this medicine? Take this medicine by mouth with a glass of water. Follow the directions on the prescription label. Take your medicine at regular intervals. Remember that you will need to pass urine frequently after taking this medicine. Do not take your doses at a time of day that will cause you problems. Do not stop taking your medicine unless your doctor tells you to. Talk to your high frequency mill operator regarding the use of this medicine in children. Special care may be needed. What side effects may I notice from receiving this medicine? Side effects that you should report to your doctor or health career discovery teacher as soon as possible: allergic reactions such as skin rash or itching, hives, swelling of the lips, mouth, tongue, or throat changes in vision chest pain eye pain fast or irregular heartbeat feeling faint or lightheaded, falls gout attack muscle pain or cramps pain or difficulty when passing urine pain, tingling, numbness in the hands or feet redness, blistering, peeling or loosening of the skin, including inside the mouth unusually weak or tired Side effects that usually do not require medical attention (report to your doctor or health career discovery teacher if they continue or are bothersome): change in sex drive or performance dry mouth headache stomach upset What may interact with this medicine? cholestyramine colestipol digoxin dofetilide lithium medicines for blood pressure medicines for diabetes medicines that relax muscles for surgery other diuretics steroid medicines like prednisone or cortisone What if I miss a dose? If you miss a dose, take it as soon as you can. If it is almost time for your next dose, take only that dose. Do not take double or extra doses. Where should I keep my medicine? Keep out of the reach of children. Store at room temperature between 15 and 30 degrees C (59 and 86 degrees F). Do not freeze. Protect from light and moisture. Keep container closed tightly. Throw away any unused medicine after the expiration date. What should I tell my health care provider before I take this medicine? They need to know if you have any of these conditions: diabetes gout immune system problems, like lupus kidney disease or kidney stones liver disease pancreatitis small amount of urine or difficulty passing urine an unusual or allergic reaction to hydrochlorothiazide, sulfa drugs, other medicines, foods, dyes, or preservatives or trying to get breast-feeding What should I watch for while using this medicine? Visit your doctor or health career discovery teacher for regular checks on your progress. Check your blood pressure as directed. Ask your doctor or health career discovery teacher what your blood pressure should be and when you should contact him or her. You may need to be on a special diet while taking this medicine. Ask your doctor. Check with your doctor or health career discovery teacher if you get an attack of severe diarrhea, nausea and vomiting, or if you sweat a lot. The loss of too much body fluid can make it dangerous for you to take this medicine. You may get drowsy or dizzy. Do not drive, use machinery, or do anything that needs mental alertness until you know how this medicine affects you. Do not stand or sit up quickly, especially if you are an older patient. This reduces the risk of dizzy or fainting spells. Alcohol may interfere with the effect of this medicine. Avoid alcoholic drinks. This medicine may affect your blood sugar level. If you have diabetes, check with your doctor or health career discovery teacher before changing the dose of your diabetic medicine. This medicine can make you more sensitive to the sun. Keep out of the sun. If you cannot avoid being in the sun, wear protective clothing and use sunscreen. Do not use sun lamps or tanning beds/booths. You have been given the following additional information: Cellulitis Hydrochlorothiazide Oral tablet (Electronically signed by Morgan Dalton MD 12/08/2016 11:02)
--- NOTE | 2016-12-08 11:03 | ED NURSING NOTES ---
Clinical Report - Nurses [facility] [address] [place] [address] 12/05/2016 20:14 [id number] TRI[facility] Triage time 20:25. Chief Complaint: RIGHT LOWER EXTREMITY PAIN, SWELLING and REDNESS. LEFT LOWER EXTREMITY PAIN, SWELLING and REDNESS. Alert. --20:32 Sheriff Bond R.N. 20:25 12/05/16. BP: 128/88. HR: 92. RR: 18. O2 saturation: 92%. Temp: 98.1 F. Pain level now: 12/29. --20:32 Sheriff Bond R.N. Acuity: LEVEL 4. --20:32 Sheriff Bond R.N. 20:25 12/05/16. BP: 128/88. HR: 92. RR: 18. O2 saturation: 92%. Temp: 98.1 F. Pain level now: 12/29. --20:32 Sheriff Bond R.N. Weight: 204.1 kg estimated. Height/Length: 65 inches Estimated. BMI: 75. --20:35 Sheriff Bond R.N. Medications Ativan Oral 1 mg, PRN. Atrovent HFA Inhalation. Metolazone Oral (Tablet 5 mg) 1 tablet, daily, started 06/21/16. Metolazone Oral (started yesterday). Phenergan (Promethazine) Rectal, as needed. Potassium Chloride ER Oral (Capsule Extended Release 10 meq) 1 capsule, daily. Seroquel Oral 300 mg, at bedtime. Singulair Oral 10 mg, daily. Suboxone Sublingual (Film 8-2 mg) 2 strips daily ("Is too strong, I only take 0.5 strip"). Trileptal Oral 600 mg x 2 , at bedtime. Ventolin HFA Inhalation. Zofran Oral 4 mg, PRN. Zyrtec Oral 10 mg, daily. --20:28 Sambou, Bradley Linebacker Crewmember, R.N. Allergies Bactrim. Definite Severe(swelling) --20:28 Sheriff Bond R.N. Penicillins. Possible (Uncertain reaction--happened when very young) Sulfa Drugs. Side-Effect Severe(swelling) Theophylline. Definite Moderate (Racing HR) --20:28 Sheriff Bond R.N. History Arrived by private vehicle. Historian: patient. Accompanied by friend. This occurred (3 days ago). ( swelling and pain worst today.). Treatment METAL HANDLER: None. SOCIAL HX: History of drug use: marijuana. No alcohol use. FALL RISK ASSESSMENT: Fall risk assessment completed. No fall risk identified. NUTRITIONAL RISK ASSESSMENT: The nutritional risk assessment revealed no deficiencies. FUNCTIONAL ASSESSMENT: Functional assessment: no impairments noted. LEARNING NEEDS ASSESSMENT: The learning needs assessment revealed no barriers. SKIN INTEGRITY ASSESSMENT: Skin tears noted on the left calf. --20:32 Sheriff Bond R.N. PROBLEMS: Pneumonia. Hypomagnesemia. Diverticulitis. Muscle Spasm. Hypokalemia. Unstable Angina. Myocardial Infarction. Coronary Artery Disease. Lower Extremity Pain. Dizziness. Narcotic Withdrawal. Palpitations. Chest Pain. Lung Disease. Asthma. Depression. Diarrhea. Candidiasis. Hyponatremia. Vomiting. Pulmonary Hypertension. Gastroenteritis. Ovarian Cyst. Gastroesophageal Reflux Disease. Tension-Type Headache. Chest Wall Pain. COPD - Chronic Obstructive Pulmonary Disease. Hypertension. Constipation. Obesity. Abdominal Pain. Bipolar Disorder. Gastroesophageal Reflux. Environmental Allergies. Chronic Back Pain. Gallstone(s). Diabetes Mellitus. Immunizations. LNMP - Last Normal Menstrual Period. --20:54 Sheriff Bond R.N. ADDITIONAL SURGERIES: Cholecystectomy. --20:54 Sheriff Bond R.N. Interventions ID band on patient. To room. --20:32 Sheriff Bond R.N. PHYSICAL ASSESSMENT Ambulatory to room. GENERAL / NEURO / PSYCH: Oriented X 4. Alert. CVS: Capillary refill is greater than 3 seconds. EXTREMITIES: Limited ROM present in the right lower leg and left lower leg. Bilateral edema of the lower extremities involving both lower legs. SKIN: Skin is warm and dry. --20:34 Sheriff Bond R.N. NURSING PROGRESS NOTES Two patient identifiers checked. Call light placed in reach. Side rails up x 2. Bed placed in lowest position. Brakes of bed on. Patient ready for evaluation- chart flagged. --20:34 Sheriff Bond R.N. 21:29 12/05/2016 Site #1 started via IV in the left antecubital space with an 20g angiocath, with aseptic technique and good blood return; one attempt. Blood drawn: rainbow set. Saline lock flushed with 10 mL saline. --21:29 Sheriff Bond R.N. 22:54 12/05/16. BP: 99/56. HR: 110. RR: 18. O2 saturation: 94%. Temp: 98.1 F. Pain level now: 11/28. --22:55 Sheriff Bond R.N. 00:09 12/06/2016 Started 500 mg of Levaquin (Levofloxacin) IVPB in bag #1 100 mL; at 100 mL/hr over 1 hour(s) via site #1 via IV pump. Allergies verified and confirmed 5 rights. IV patency established. IV site checked: no pain, redness, or swelling. IV flushed thoroughly pre- and post-medication administration (500 mL NS started at 500 mL per hour with levaquin). --00:10 Chantel Luna R.N. DISPOSITION / DISCHARGE Condition at departure: stable. No learning barriers present. Discharge instructions provided and reviewed with the patient. Reviewed medication(s) side effects, precautions, dosing and course information. Prescription(s) given to the patient. Patient verbalized understanding. Written instructions provided in Welsh. The patient was discharged by the physician. She was discharged home and accompanied by family. She left the Emergency Department ambulatory and via private vehicle. Family member driving. --01:13 Sheriff Bond R.N. 01:11 12/06/16. BP: 122/68. HR: 109. RR: 18. O2 saturation: 92%. Temp: 97.9 F. Pain level now: 10/31. --01:13 Sheriff Bond R.N. 01:13 12/06/2016 Site #1 removed. Catheter intact. Bandage applied. --01:14 Sheriff Bond R.N. Locked/Released at 12/06/2016 1:14 by Sheriff Bond R.N.
--- NOTE | 2016-12-08 11:03 | ED MED RECONCILIATION SUMMARY ---
Patient: GEOVANNY FANG Medication Reconciliation Report [facility] VisitID: [id number] [address] [place] [address] 41y, F Registration Date/Time: 12/05/2016 Weight: 204.1 kg Height/Length: 65 in. BMI: 75.0 ALLERGIES: Bactrim, Penicillins, Sulfa Drugs, Theophylline The patient's Home Medications are listed below: THE FOLLOWING MEDICATIONS NEED TO BE RECONCILED: Ativan Oral 1 mg, PRN Atrovent HFA Inhalation Metolazone Oral (5 mg) 1 tablet, daily Metolazone Oral, started yesterday Phenergan (Promethazine) Rectal Potassium Chloride ER Oral (10 meq) 1 capsule, daily Seroquel Oral 300 mg, at bedtime Singulair Oral 10 mg, daily Suboxone Sublingual (8-2 mg) 2 strips daily , "Is too strong, I only take 0.5 strip" Trileptal Oral 600 mg x 2 , at bedtime Ventolin HFA Inhalation Zofran Oral 4 mg, PRN Zyrtec Oral 10 mg, daily The source(s) of the original Home Medication information: Not obtained. The following Medications were given to the patient in the Emergency Department: Levaquin [IVPB] IVPB bolus 0, then 500 mg 100 mL/hr, administered: 12/06/2016 12:09:00 AM The following Medications were prescribed to the patient: HCTZ 25 mg: take 1 orally every 24 hours. Dispense five (5). No refills. -- Morgan Dalton MD Levaquin 500 mg: take 1 tablet orally every 24 hours for 10 days. No refills. Substitution is permissible. -- Morgan Dalton MD
--- NOTE | 2016-12-08 11:03 | ED ORDER SUMMARY ---
..... Patient: GEOVANNY FANG OrderSheet [facility] VisitID: [id number] [place] [address] 41y, F Registration Date/Time: 12/05/2016 ORDER SHEET Weight: 204.1 kg (estimated) Allergies: Bactrim, Penicillins, Sulfa Drugs, Theophylline GENERAL ORDERS: Cardiac Panel Stat (21:16 12/05/2016 Kade PIERCE) (Ack 21:18 Navin ER Tech1) (23:53 MWinterer R.N.) D-Dimer Urgent (21:16 12/05/2016 Kade PIERCE) (Ack 21:18 Navin MIDDLETON Tech1) (23:53 MWinterer R.N.) BNP Urgent (21:16 12/05/2016 Kade PIERCE) (Ack 21:18 Navin ER Tech1) (23:53 MWinterer R.N.) TSH Urgent (21:16 12/05/2016 Kade PIERCE) (Ack 21:18 Navin ER Tech1) (23:53 MWinterer R.N.) PCT (Procalcitonin) Urgent (21:16 12/05/2016 Kade PIERCE) (Ack 21:18 Navin ER Tech1) (23:53 MWinterer R.N.) US Venous Bilat Urgent (22:25 12/05/2016 Kade PIERCE) (Ack 22:28 Navin ER Tech1) (Cancelled: Other0:07 Kade PIERCE) MEDICATION ORDERS: IV FLUIDS: IV Saline Lock (21:16 12/05/2016 Kade PIERCE) (21:29 SSambou R.N.) Levaquin IV 500 mg/100mL (NOW) (23:43 12/05/2016 Kade PIERCE) (Ack 23:57 MWinterer R.N.) (0:10 MWinterer R.N.) ORDER SHEET NOTES: [Electronically signed by Sheriff Lizet Bond (01:14 12/06/2016)] [Electronically signed by Morgan Dalton MD (11:02 12/08/2016)] [Electronically locked/signed by Sheriff Lizet Bond (01:14 12/06/2016)]
--- NOTE | 2016-12-08 11:03 | ED MAR SUMMARY ---
..... Medication Administration Record [facility] [address] [place] [address] Patient: GEOVANNY FANG Visit ID: [id number] 41y, F Weight: 204.1 kg Height/Length: 65 in BMI: 75 ALLERGIES: Bactrim, Penicillins, Sulfa Drugs, Theophylline Start 00:09 12/06/2016 Chantel Luna R.N. Medication Administered: LEVAQUIN [IVPB] (LEVOFLOXACIN), Dose: 500 mg IVPB over 1 hour(s), Rate: 100 mL/hr, Dispensed: 100 mL bag, Site: #1 left AC. Medication Ordered: Levaquin IV 500 mg/100mL (NOW).
--- NOTE | 2016-12-08 11:03 | ED MAR SUMMARY ---
..... Medication Administration Record [facility] [address] [place] [address] Patient: GEOVANNY FANG Visit ID: [id number] 41y, F Weight: 204.1 kg Height/Length: 65 in BMI: 75 ALLERGIES: Bactrim, Penicillins, Sulfa Drugs, Theophylline Start 00:09 12/06/2016 Chantel Luna R.N. Medication Administered: LEVAQUIN [IVPB] (LEVOFLOXACIN), Dose: 500 mg IVPB over 1 hour(s), Rate: 100 mL/hr, Dispensed: 100 mL bag, Site: #1 left AC. Medication Ordered: Levaquin IV 500 mg/100mL (NOW).
--- NOTE | 2016-12-08 11:03 | ED MED RECONCILIATION SUMMARY ---
Patient: GEOVANNY FANG Medication Reconciliation Report [facility] VisitID: [id number] [address] [place] [address] 41y, F Registration Date/Time: 12/05/2016 Weight: 204.1 kg Height/Length: 65 in. BMI: 75.0 ALLERGIES: Bactrim, Penicillins, Sulfa Drugs, Theophylline The patient's Home Medications are listed below: THE FOLLOWING MEDICATIONS NEED TO BE RECONCILED: Ativan Oral 1 mg, PRN Atrovent HFA Inhalation Metolazone Oral (5 mg) 1 tablet, daily Metolazone Oral, started yesterday Phenergan (Promethazine) Rectal Potassium Chloride ER Oral (10 meq) 1 capsule, daily Seroquel Oral 300 mg, at bedtime Singulair Oral 10 mg, daily Suboxone Sublingual (8-2 mg) 2 strips daily , "Is too strong, I only take 0.5 strip" Trileptal Oral 600 mg x 2 , at bedtime Ventolin HFA Inhalation Zofran Oral 4 mg, PRN Zyrtec Oral 10 mg, daily The source(s) of the original Home Medication information: Not obtained. The following Medications were given to the patient in the Emergency Department: Levaquin [IVPB] IVPB bolus 0, then 500 mg 100 mL/hr, administered: 12/06/2016 12:09:00 AM The following Medications were prescribed to the patient: HCTZ 25 mg: take 1 orally every 24 hours. Dispense five (5). No refills. -- Morgan Dalton MD Levaquin 500 mg: take 1 tablet orally every 24 hours for 10 days. No refills. Substitution is permissible. -- Morgan Dalton MD
--- NOTE | 2016-12-08 11:03 | ED ORDER SUMMARY ---
..... Patient: GEOVANNY FANG OrderSheet [facility] VisitID: [id number] [place] [address] 41y, F Registration Date/Time: 12/05/2016 ORDER SHEET Weight: 204.1 kg (estimated) Allergies: Bactrim, Penicillins, Sulfa Drugs, Theophylline GENERAL ORDERS: Cardiac Panel Stat (21:16 12/05/2016 Kade PIERCE) (Ack 21:18 Navin ER Tech1) (23:53 MWinterer R.N.) D-Dimer Urgent (21:16 12/05/2016 Kade PIERCE) (Ack 21:18 Navin MIDDLETON Tech1) (23:53 MWinterer R.N.) BNP Urgent (21:16 12/05/2016 Kade PIERCE) (Ack 21:18 Navin ER Tech1) (23:53 MWinterer R.N.) TSH Urgent (21:16 12/05/2016 Kade PIERCE) (Ack 21:18 Navin ER Tech1) (23:53 MWinterer R.N.) PCT (Procalcitonin) Urgent (21:16 12/05/2016 Kade PIERCE) (Ack 21:18 Navin ER Tech1) (23:53 MWinterer R.N.) US Venous Bilat Urgent (22:25 12/05/2016 Kade PIERCE) (Ack 22:28 Navin ER Tech1) (Cancelled: Other0:07 Kade PIERCE) MEDICATION ORDERS: IV FLUIDS: IV Saline Lock (21:16 12/05/2016 Kade PIERCE) (21:29 SSambou R.N.) Levaquin IV 500 mg/100mL (NOW) (23:43 12/05/2016 Kade PIERCE) (Ack 23:57 MWinterer R.N.) (0:10 MWinterer R.N.) ORDER SHEET NOTES: [Electronically signed by Sheriff Lizet Bond (01:14 12/06/2016)] [Electronically signed by Morgan Dalton MD (11:02 12/08/2016)] [Electronically locked/signed by Sheriff Lizet Bond (01:14 12/06/2016)]
--- NOTE | 2016-12-08 11:03 | ED CLINICAL REPORT ---
Clinical Report - Physicians/Mid Levels [facility] [address] [place] [address] 12/05/2016 20:14 [id number] Time Seen: 21:08 Dec 05 2016. Arrived- By private vehicle. Historian- patient. CPT: ER phys charges level 4 (#[id number]). HISTORY OF PRESENT ILLNESS Chief Complaint: LOWER EXTREMITY PAIN and SWELLING. The quality is noted to be sharp, aching and "pain". 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 ( swelling and pain worst today.).). Symptoms located in the area of the right leg, left leg and left ankle. The patient has had redness and swelling. Patient notes an injury. Similar symptoms previously: As bad. Diagnosis: cellulitis. Recent medical care: The patient was seen recently at another facility in a clinic. Seen for other problems. Evaluation/treatment: antibiotic prescribed. Diagnosis: (pneumonia). REVIEW OF SYSTEMS No cough, chest pain, difficulty breathing, fever or skin rash. No enlarged lymph nodes, abdominal pain, vomiting, diarrhea or black stools. No difficulty with urination. Leg redness came on about a week after finishing antibiotics for pneumonia. Pneumonia is a lot better. All systems otherwise negative, except as recorded above. PAST HISTORY ( Pneumonia. Hypomagnesemia. Diverticulitis. Muscle Spasm. Hypokalemia. Unstable Angina. Myocardial Infarction. Coronary Artery Disease. Lower Extremity Pain. Dizziness. Narcotic Withdrawal. Palpitations. Chest Pain. Lung Disease. Asthma. Depression. Diarrhea. Candidiasis. Hyponatremia. Vomiting. Pulmonary Hypertension. Gastroenteritis. Ovarian Cyst. Gastroesophageal Reflux Disease. Tension-Type Headache. Chest Wall Pain. COPD - Chronic Obstructive Pulmonary Disease. Hypertension. Constipation. Obesity. Abdominal Pain. Bipolar Disorder. Gastroesophageal Reflux. Environmental Allergies. Chronic Back Pain. Gallstone(s). Diabetes Mellitus. Immunizations. Cholecystectomy.). Medications: Ativan Oral 1 mg, PRN. Atrovent HFA Inhalation. Metolazone Oral (Tablet 5 mg) 1 tablet, daily, started 06/21/16. Metolazone Oral (started yesterday). Phenergan (Promethazine) Rectal, as needed. Potassium Chloride ER Oral (Capsule Extended Release 10 meq) 1 capsule, daily. Seroquel Oral 300 mg, at bedtime. Singulair Oral 10 mg, daily. Suboxone Sublingual (Film 8-2 mg) 2 strips daily ("Is too strong, I only take 0.5 strip"). Trileptal Oral 600 mg x 2 , at bedtime. Ventolin HFA Inhalation. Zofran Oral 4 mg, PRN. Zyrtec Oral 10 mg, daily. Allergies: Bactrim. Definite Severe(swelling) Penicillins. Possible (Uncertain reaction--happened when very young) Sulfa Drugs. Side-Effect Severe(swelling) Theophylline. Definite Moderate (Racing HR). SOCIAL HISTORY No alcohol use or drug use. ADDITIONAL NOTES The nursing notes have been reviewed. PHYSICAL EXAM Vital Signs: 12/05/2016 20:25 BP: 128/88. HR: 92. RR: 18. O2 saturation: 92%. Temp: 98.1 F. Pain level now: 4/10. Appearance: Alert. No acute distress. Eyes: Pupils equal, round and reactive to light. Eyes normal inspection. ENT: Pharynx normal. Neck: Normal inspection. CVS: Normal heart rate and rhythm. Heart sounds normal. Respiratory: No respiratory distress. Breath sounds normal. Abdomen: Soft. Back: No tenderness. Skin: Skin intact. Skin warm. Skin rash. Extremities: Right leg: mild erythema and tenderness and moderate swelling located in the lower leg. Neurovascular intact distally. Left leg: moderate erythema, tenderness and swelling located in the mid and lower leg. Neurovascular intact distally. No limitation of weight bearing. Lower extremity signs of infection present. Calf tenderness. Extremities otherwise negative. Neuro: Oriented X 3. No motor deficit. No sensory deficit. LABS, X-RAYS, AND EKG Laboratory Tests: CBC w Diff: (JORDI: 12/05/2016 21:25) ( MsgRcvd 12/05/2016 21:37) Final results Test Result Flag Units (Reference) WHITE BLOOD COUNT 12.3 H K/uL (4.5-11.5) RED BLOOD COUNT 3.98 L M/uL (4.00-5.20) HEMOGLOBIN 11.5 L gm/dL (12.0-16.0) HEMATOCRIT 34.4 L % (36.0-46.0) MEAN CELL VOLUME 87 fL (80-100) MEAN CORPUSCULAR HGB 29 pg (26-34) MEAN CORPUSCULAR HGB CONC 33 g/dL (31-37) RED CELL DISTRIBUTION WIDTH 15.6 H % (11.6-14.8) PLATELET COUNT 448 H K/uL (150-400) NEUTROPHIL % 76.8 H % (50-75) LYMPH % 18.2 L % (25-40) MONO % 4.4 % (3-14) EOSINOPHIL % 0.4 % (0-4) BASOPHIL % 0.2 % (0-2) [id number]: (JORDI: 12/05/2016 21:25) ( [facility] 12/05/2016 21:45) Final results Test Result Flag Units (Reference) D-DIMER QUANTITATIVE 1.95 H ug/mLFEU (0.27-0.52) The primary value of this quantitative assay relates toits negative predictive value (i.e. exclusion) of pulmonaryembolism/deep vein thrombosis/DIC.Elevated levels of d-dimer may also occur with:, age, cancer, inflammation, liver disease,post-op, infection, hematoma, coronary disease, peripheralarteriopathy, bleeding disorders and thrombolytic treatment.Results should be correlated with other clinical andradiological data.Testing Methodology: Latex Immunoassay BNP: (JORDI: 12/05/2016 21:25) ( [facility] 12/05/2016 22:02) Final results Test Result Flag Units (Reference) B-TYPE NATRIURETIC PEPTIDE 8.4 pg/ml (5-100) [id number]: (JORDI: 12/05/2016 21:25) ( [facility] 12/05/2016 22:08) Final results Test Result Flag Units (Reference) PROCALCITONIN <0.5 ng/mL (0-0.5) PCT Concentration: Interpretation : Risk/option for action PCT <=0.5 ng/mL : Systemic : Low risk forinfection(sepsis): progression to severeis not likely. : systemic infection.Local bacterial : CAUTION-PCT levelsinfection is : below 0.5 ng/mL do notpossible. : exclude an infection,because localizedinfections (withoutsystemic signs) may beassociated with suchlow levels. If PCT ismeasured very earlyafter a bacterialchallenge (usually <6hours), these valuesmay still be low. Inthis case PCT shouldbe re-assessed 6-24hours later. PCT >0.5 and : Systemic infection: Moderate risk for<= 2 ng/mL : (sepsis) is : progression to severepossible, but : systemic infection.other conditions : The patient should beare known to : closely monitoredelevate PCT. : both clinically andby re-assessing PCTwithin 6-24 hours. PCT > 2 ng/mL : Systemic infection: High risk for(sepsis) is likely: progression to severeunless other : systemic infection.causes are known. : PCT >= 10 ng/mL : Important systemic: High likelihood ofinflammatory : severe sepsis orresponse, almost : septic shock.exclusively due to:severe bacterial :sepsis or septic :shock. : CHEM 13 PANEL: (JORDI: 12/05/2016 21:25) ( MsgRcvd 12/05/2016 22:03) Final results Test Result Flag Units (Reference) GLUCOSE 96 mg/dL (70-110) BUN 3 L mg/dL (7-18) CREATININE 0.7 mg/dL (0.6-1.3) Estimated GFR >60 mL/min Estimated GFR- >60 mL/min Note: Persistent reduction over 3 months in eGFR<60 mL/min/1.73 m2 defines CKD. Patients with eGFR values>=60 mL/min/1.73 m2 may also have CKD if evidence ofpersistent proteinuria. Additional information may be foundat www.kidney.org. SODIUM 135 L mmol/L (136-145) POTASSIUM 3.9 mmol/L (3.5-5.1) CHLORIDE 96 L mmol/L (98-107) CARBON DIOXIDE 31 mmol/L (21-32) CALCIUM 9.0 mg/dL (8.5-10.1) TOTAL PROTEIN 7.3 g/dL (6.4-8.2) ALBUMIN 3.1 L g/dL (3.3-5.0) BILIRUBIN, TOTAL 0.3 mg/dL (0.0-1.0) ALKALINE PHOSPHATASE 92 U/L (46-116) AST (SGOT) 19 U/L (15-37) ALT (SGPT) 46 U/L (12-78) CPK 40 U/L (24-260) MAGNESIUM 1.7 L mg/dL (1.8-2.4) TROPONIN I <0.05 ng/mL (0.00-1.5) TROPONIN REFERENCE RANGE:<0.1 NEGATIVE0.1-1.5 INDETERMINANT>1.5 POSITIVE THYROID STIMULATING HORMONE 3.028 uIU/mL (0.34-3.74) . PROGRESS AND PROCEDURES Course of Care: Pt too big to get on bed . US tech cannot do US in chair. Pt refuses US at this point due to feeling strongly it is more likely infection as it went away initially with the antibiotics (zithromax) that she was on for her pneumnia. Discussed risk of DVT/PE with alecia-dimer elevation. Pt understands that can occur for untreated PE. She still wishes to defer the US at this time. Pt also has a hx of leg edema but diuretics were stopped due to poor control of potassium and sodium. Levaquin 500mg IV. Patient/family counseled. Disposition: Discharged. Condition: stable. CLINICAL IMPRESSION Cellulitis of the right lower leg, right ankle and left lower leg. Bilateral leg edema. INSTRUCTIONS Warnings: Further evaluation is necessary. GENERAL WARNINGS: Return or contact your physician immediately if your condition worsens or changes unexpectedly, if not improving as expected, or if other problems arise. Prescription Medications: HCTZ 25 mg: take 1 orally every 24 hours. Dispense five (5). No refills. Levaquin 500 mg: take 1 tablet orally every 24 hours for 10 days. No refills. Substitution is permissible. Follow-up: Return to the emergency department If getting worse. Follow up with your doctor Thursday in four days. Call for the next available appointment. Understanding of the discharge instructions verbalized by patient. (Electronically signed by Morgan Dalton MD 12/08/2016 11:02)
--- NOTE | 2016-12-08 11:03 | ED DISCHARGE INSTRUCTIONS ---
Patient: GEOVANNY FANG General Instructions [facility] VisitID: [id number] [place] [address] 41y, F Registration Date/Time: 12/05/2016 Cellulitis of the right lower leg, right ankle and left lower leg. Bilateral leg edema. INSTRUCTIONS Warnings: Further evaluation is necessary. GENERAL WARNINGS: Return or contact your physician immediately if your condition worsens or changes unexpectedly, if not improving as expected, or if other problems arise. Prescription Medications: HCTZ 25 mg: take 1 orally every 24 hours. Dispense five (5). No refills. Levaquin 500 mg: take 1 tablet orally every 24 hours for 10 days. No refills. Substitution is permissible. Follow-up: Return to the emergency department If getting worse. Follow up with your doctor Thursday in four days. Call for the next available appointment. Understanding of the discharge instructions verbalized by patient. ADDITIONAL INFORMATION Cellulitis You have an infection of the skin known as cellulitis. This usually starts with a scrape, cut, insect bite, blister or other opening in the skin which becomes infected. This is a serious condition. It must be watched closely to be sure the infection is not spreading. With antibiotic treatment, the size of the red area will gradually shrink in size until the skin returns to normal. This will take 7-10 days. The red area should never increase in size once the antibiotic medicine has been started. Occasionally, an infection will be resistant to one antibiotic and another one will have to be used. Home Care: 1) Limit the use of the affected part, since excess movement can cause the infection to spread. 2) If the infection is on your leg, walk as little as possible during the first few days of the treatment. Keep your leg elevated while sitting. This will reduce swelling. 3) Take all of the antibiotic medicine exactly as directed until it is gone. Be careful not to miss any doses, especially during the first seven days. Follow Up with your doctor or this facility as directed. Check the infected area daily for the warning signs listed below. Get Prompt Medical Attention if any of the following occur: -- Spreading area of redness -- Increasing swelling or pain -- Appearance of pus or drainage -- Fever over 100.4 F (38.0 C) oral, or over 101.4 F (38.6 C) rectal, after two days on antibiotics Hydrochlorothiazide Oral tablet What is this medicine? HYDROCHLOROTHIAZIDE (dwight droe klor oh THYE a zide) is a diuretic. It increases the amount of urine passed, which causes the body to lose salt and water. This medicine is used to treat high blood pressure. It is also reduces the swelling and water retention caused by various medical conditions, such as heart, liver, or kidney disease. How should I use this medicine? Take this medicine by mouth with a glass of water. Follow the directions on the prescription label. Take your medicine at regular intervals. Remember that you will need to pass urine frequently after taking this medicine. Do not take your doses at a time of day that will cause you problems. Do not stop taking your medicine unless your doctor tells you to. Talk to your buying agent regarding the use of this medicine in children. Special care may be needed. What side effects may I notice from receiving this medicine? Side effects that you should report to your doctor or health family day care provider as soon as possible: allergic reactions such as skin rash or itching, hives, swelling of the lips, mouth, tongue, or throat changes in vision chest pain eye pain fast or irregular heartbeat feeling faint or lightheaded, falls gout attack muscle pain or cramps pain or difficulty when passing urine pain, tingling, numbness in the hands or feet redness, blistering, peeling or loosening of the skin, including inside the mouth unusually weak or tired Side effects that usually do not require medical attention (report to your doctor or health family day care provider if they continue or are bothersome): change in sex drive or performance dry mouth headache stomach upset What may interact with this medicine? cholestyramine colestipol digoxin dofetilide lithium medicines for blood pressure medicines for diabetes medicines that relax muscles for surgery other diuretics steroid medicines like prednisone or cortisone What if I miss a dose? If you miss a dose, take it as soon as you can. If it is almost time for your next dose, take only that dose. Do not take double or extra doses. Where should I keep my medicine? Keep out of the reach of children. Store at room temperature between 15 and 30 degrees C (59 and 86 degrees F). Do not freeze. Protect from light and moisture. Keep container closed tightly. Throw away any unused medicine after the expiration date. What should I tell my health care provider before I take this medicine? They need to know if you have any of these conditions: diabetes gout immune system problems, like lupus kidney disease or kidney stones liver disease pancreatitis small amount of urine or difficulty passing urine an unusual or allergic reaction to hydrochlorothiazide, sulfa drugs, other medicines, foods, dyes, or preservatives or trying to get breast-feeding What should I watch for while using this medicine? Visit your doctor or health family day care provider for regular checks on your progress. Check your blood pressure as directed. Ask your doctor or health family day care provider what your blood pressure should be and when you should contact him or her. You may need to be on a special diet while taking this medicine. Ask your doctor. Check with your doctor or health family day care provider if you get an attack of severe diarrhea, nausea and vomiting, or if you sweat a lot. The loss of too much body fluid can make it dangerous for you to take this medicine. You may get drowsy or dizzy. Do not drive, use machinery, or do anything that needs mental alertness until you know how this medicine affects you. Do not stand or sit up quickly, especially if you are an older patient. This reduces the risk of dizzy or fainting spells. Alcohol may interfere with the effect of this medicine. Avoid alcoholic drinks. This medicine may affect your blood sugar level. If you have diabetes, check with your doctor or health family day care provider before changing the dose of your diabetic medicine. This medicine can make you more sensitive to the sun. Keep out of the sun. If you cannot avoid being in the sun, wear protective clothing and use sunscreen. Do not use sun lamps or tanning beds/booths. You have been given the following additional information: Cellulitis Hydrochlorothiazide Oral tablet (Electronically signed by Morgan Dalton MD 12/08/2016 11:02)
--- NOTE | 2016-12-08 11:03 | ED CLINICAL REPORT ---
Clinical Report - Physicians/Mid Levels [facility] [address] [place] [address] 12/05/2016 20:14 [id number] Time Seen: 21:08 Dec 05 2016. Arrived- By private vehicle. Historian- patient. CPT: ER phys charges level 4 (#[id number]). HISTORY OF PRESENT ILLNESS Chief Complaint: LOWER EXTREMITY PAIN and SWELLING. The quality is noted to be sharp, aching and "pain". 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 ( swelling and pain worst today.).). Symptoms located in the area of the right leg, left leg and left ankle. The patient has had redness and swelling. Patient notes an injury. Similar symptoms previously: As bad. Diagnosis: cellulitis. Recent medical care: The patient was seen recently at another facility in a clinic. Seen for other problems. Evaluation/treatment: antibiotic prescribed. Diagnosis: (pneumonia). REVIEW OF SYSTEMS No cough, chest pain, difficulty breathing, fever or skin rash. No enlarged lymph nodes, abdominal pain, vomiting, diarrhea or black stools. No difficulty with urination. Leg redness came on about a week after finishing antibiotics for pneumonia. Pneumonia is a lot better. All systems otherwise negative, except as recorded above. PAST HISTORY ( Pneumonia. Hypomagnesemia. Diverticulitis. Muscle Spasm. Hypokalemia. Unstable Angina. Myocardial Infarction. Coronary Artery Disease. Lower Extremity Pain. Dizziness. Narcotic Withdrawal. Palpitations. Chest Pain. Lung Disease. Asthma. Depression. Diarrhea. Candidiasis. Hyponatremia. Vomiting. Pulmonary Hypertension. Gastroenteritis. Ovarian Cyst. Gastroesophageal Reflux Disease. Tension-Type Headache. Chest Wall Pain. COPD - Chronic Obstructive Pulmonary Disease. Hypertension. Constipation. Obesity. Abdominal Pain. Bipolar Disorder. Gastroesophageal Reflux. Environmental Allergies. Chronic Back Pain. Gallstone(s). Diabetes Mellitus. Immunizations. Cholecystectomy.). Medications: Ativan Oral 1 mg, PRN. Atrovent HFA Inhalation. Metolazone Oral (Tablet 5 mg) 1 tablet, daily, started 06/21/16. Metolazone Oral (started yesterday). Phenergan (Promethazine) Rectal, as needed. Potassium Chloride ER Oral (Capsule Extended Release 10 meq) 1 capsule, daily. Seroquel Oral 300 mg, at bedtime. Singulair Oral 10 mg, daily. Suboxone Sublingual (Film 8-2 mg) 2 strips daily ("Is too strong, I only take 0.5 strip"). Trileptal Oral 600 mg x 2 , at bedtime. Ventolin HFA Inhalation. Zofran Oral 4 mg, PRN. Zyrtec Oral 10 mg, daily. Allergies: Bactrim. Definite Severe(swelling) Penicillins. Possible (Uncertain reaction--happened when very young) Sulfa Drugs. Side-Effect Severe(swelling) Theophylline. Definite Moderate (Racing HR). SOCIAL HISTORY No alcohol use or drug use. ADDITIONAL NOTES The nursing notes have been reviewed. PHYSICAL EXAM Vital Signs: 12/05/2016 20:25 BP: 128/88. HR: 92. RR: 18. O2 saturation: 92%. Temp: 98.1 F. Pain level now: 4/10. Appearance: Alert. No acute distress. Eyes: Pupils equal, round and reactive to light. Eyes normal inspection. ENT: Pharynx normal. Neck: Normal inspection. CVS: Normal heart rate and rhythm. Heart sounds normal. Respiratory: No respiratory distress. Breath sounds normal. Abdomen: Soft. Back: No tenderness. Skin: Skin intact. Skin warm. Skin rash. Extremities: Right leg: mild erythema and tenderness and moderate swelling located in the lower leg. Neurovascular intact distally. Left leg: moderate erythema, tenderness and swelling located in the mid and lower leg. Neurovascular intact distally. No limitation of weight bearing. Lower extremity signs of infection present. Calf tenderness. Extremities otherwise negative. Neuro: Oriented X 3. No motor deficit. No sensory deficit. LABS, X-RAYS, AND EKG Laboratory Tests: CBC w Diff: (JORDI: 12/05/2016 21:25) ( MsgRcvd 12/05/2016 21:37) Final results Test Result Flag Units (Reference) WHITE BLOOD COUNT 12.3 H K/uL (4.5-11.5) RED BLOOD COUNT 3.98 L M/uL (4.00-5.20) HEMOGLOBIN 11.5 L gm/dL (12.0-16.0) HEMATOCRIT 34.4 L % (36.0-46.0) MEAN CELL VOLUME 87 fL (80-100) MEAN CORPUSCULAR HGB 29 pg (26-34) MEAN CORPUSCULAR HGB CONC 33 g/dL (31-37) RED CELL DISTRIBUTION WIDTH 15.6 H % (11.6-14.8) PLATELET COUNT 448 H K/uL (150-400) NEUTROPHIL % 76.8 H % (50-75) LYMPH % 18.2 L % (25-40) MONO % 4.4 % (3-14) EOSINOPHIL % 0.4 % (0-4) BASOPHIL % 0.2 % (0-2) [id number]: (JORDI: 12/05/2016 21:25) ( [facility] 12/05/2016 21:45) Final results Test Result Flag Units (Reference) D-DIMER QUANTITATIVE 1.95 H ug/mLFEU (0.27-0.52) The primary value of this quantitative assay relates toits negative predictive value (i.e. exclusion) of pulmonaryembolism/deep vein thrombosis/DIC.Elevated levels of d-dimer may also occur with:, age, cancer, inflammation, liver disease,post-op, infection, hematoma, coronary disease, peripheralarteriopathy, bleeding disorders and thrombolytic treatment.Results should be correlated with other clinical andradiological data.Testing Methodology: Latex Immunoassay BNP: (JORDI: 12/05/2016 21:25) ( [facility] 12/05/2016 22:02) Final results Test Result Flag Units (Reference) B-TYPE NATRIURETIC PEPTIDE 8.4 pg/ml (5-100) [id number]: (JORDI: 12/05/2016 21:25) ( [facility] 12/05/2016 22:08) Final results Test Result Flag Units (Reference) PROCALCITONIN <0.5 ng/mL (0-0.5) PCT Concentration: Interpretation : Risk/option for action PCT <=0.5 ng/mL : Systemic : Low risk forinfection(sepsis): progression to severeis not likely. : systemic infection.Local bacterial : CAUTION-PCT levelsinfection is : below 0.5 ng/mL do notpossible. : exclude an infection,because localizedinfections (withoutsystemic signs) may beassociated with suchlow levels. If PCT ismeasured very earlyafter a bacterialchallenge (usually <6hours), these valuesmay still be low. Inthis case PCT shouldbe re-assessed 6-24hours later. PCT >0.5 and : Systemic infection: Moderate risk for<= 2 ng/mL : (sepsis) is : progression to severepossible, but : systemic infection.other conditions : The patient should beare known to : closely monitoredelevate PCT. : both clinically andby re-assessing PCTwithin 6-24 hours. PCT > 2 ng/mL : Systemic infection: High risk for(sepsis) is likely: progression to severeunless other : systemic infection.causes are known. : PCT >= 10 ng/mL : Important systemic: High likelihood ofinflammatory : severe sepsis orresponse, almost : septic shock.exclusively due to:severe bacterial :sepsis or septic :shock. : CHEM 13 PANEL: (JORDI: 12/05/2016 21:25) ( MsgRcvd 12/05/2016 22:03) Final results Test Result Flag Units (Reference) GLUCOSE 96 mg/dL (70-110) BUN 3 L mg/dL (7-18) CREATININE 0.7 mg/dL (0.6-1.3) Estimated GFR >60 mL/min Estimated GFR- >60 mL/min Note: Persistent reduction over 3 months in eGFR<60 mL/min/1.73 m2 defines CKD. Patients with eGFR values>=60 mL/min/1.73 m2 may also have CKD if evidence ofpersistent proteinuria. Additional information may be foundat www.[email or web address].org. SODIUM 135 L mmol/L (136-145) POTASSIUM 3.9 mmol/L (3.5-5.1) CHLORIDE 96 L mmol/L (98-107) CARBON DIOXIDE 31 mmol/L (21-32) CALCIUM 9.0 mg/dL (8.5-10.1) TOTAL PROTEIN 7.3 g/dL (6.4-8.2) ALBUMIN 3.1 L g/dL (3.3-5.0) BILIRUBIN, TOTAL 0.3 mg/dL (0.0-1.0) ALKALINE PHOSPHATASE 92 U/L (46-116) AST (SGOT) 19 U/L (15-37) ALT (SGPT) 46 U/L (12-78) CPK 40 U/L (24-260) MAGNESIUM 1.7 L mg/dL (1.8-2.4) TROPONIN I <0.05 ng/mL (0.00-1.5) TROPONIN REFERENCE RANGE:<0.1 NEGATIVE0.1-1.5 INDETERMINANT>1.5 POSITIVE THYROID STIMULATING HORMONE 3.028 uIU/mL (0.34-3.74) . PROGRESS AND PROCEDURES Course of Care: Pt too big to get on bed . US tech cannot do US in chair. Pt refuses US at this point due to feeling strongly it is more likely infection as it went away initially with the antibiotics (zithromax) that she was on for her pneumnia. Discussed risk of DVT/PE with alecia-dimer elevation. Pt understands that can occur for untreated PE. She still wishes to defer the US at this time. Pt also has a hx of leg edema but diuretics were stopped due to poor control of potassium and sodium. Levaquin 500mg IV. Patient/family counseled. Disposition: Discharged. Condition: stable. CLINICAL IMPRESSION Cellulitis of the right lower leg, right ankle and left lower leg. Bilateral leg edema. INSTRUCTIONS Warnings: Further evaluation is necessary. GENERAL WARNINGS: Return or contact your physician immediately if your condition worsens or changes unexpectedly, if not improving as expected, or if other problems arise. Prescription Medications: HCTZ 25 mg: take 1 orally every 24 hours. Dispense five (5). No refills. Levaquin 500 mg: take 1 tablet orally every 24 hours for 10 days. No refills. Substitution is permissible. Follow-up: Return to the emergency department If getting worse. Follow up with your doctor Thursday in four days. Call for the next available appointment. Understanding of the discharge instructions verbalized by patient. (Electronically signed by Morgan Dalton MD 12/08/2016 11:02)
--- NOTE | 2016-12-08 11:03 | ED NURSING NOTES ---
Clinical Report - Nurses [facility] [address] [place] [address] 12/05/2016 20:14 [id number] Triage time 20:25. Chief Complaint: RIGHT LOWER EXTREMITY PAIN, SWELLING and REDNESS. LEFT LOWER EXTREMITY PAIN, SWELLING and REDNESS. Alert. --20:32 Sheriff Bond R.N. 20:25 12/05/16. BP: 128/88. HR: 92. RR: 18. O2 saturation: 92%. Temp: 98.1 F. Pain level now: 12/29. --20:32 Sheriff Bond R.N. Acuity: LEVEL 4. --20:32 Sheriff Bond R.N. 20:25 12/05/16. BP: 128/88. HR: 92. RR: 18. O2 saturation: 92%. Temp: 98.1 F. Pain level now: 12/29. --20:32 Sheriff Bond R.N. Weight: 204.1 kg estimated. Height/Length: 65 inches Estimated. BMI: 75. --20:35 Sheriff Bond R.N. Medications Ativan Oral 1 mg, PRN. Atrovent HFA Inhalation. Metolazone Oral (Tablet 5 mg) 1 tablet, daily, started 06/21/16. Metolazone Oral (started yesterday). Phenergan (Promethazine) Rectal, as needed. Potassium Chloride ER Oral (Capsule Extended Release 10 meq) 1 capsule, daily. Seroquel Oral 300 mg, at bedtime. Singulair Oral 10 mg, daily. Suboxone Sublingual (Film 8-2 mg) 2 strips daily ("Is too strong, I only take 0.5 strip"). Trileptal Oral 600 mg x 2 , at bedtime. Ventolin HFA Inhalation. Zofran Oral 4 mg, PRN. Zyrtec Oral 10 mg, daily. --20:28 Sambou, Package Designer, R.N. Allergies Bactrim. Definite Severe(swelling) --20:28 Sheriff Bond R.N. Penicillins. Possible (Uncertain reaction--happened when very young) Sulfa Drugs. Side-Effect Severe(swelling) Theophylline. Definite Moderate (Racing HR) --20:28 Sheriff Bond R.N. History Arrived by private vehicle. Historian: patient. Accompanied by friend. This occurred (3 days ago). ( swelling and pain worst today.). 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 SOCIAL HX: History of drug use: marijuana. No alcohol use. FALL RISK ASSESSMENT: Fall risk assessment completed. No fall risk identified. NUTRITIONAL RISK ASSESSMENT: The nutritional risk assessment revealed no deficiencies. FUNCTIONAL ASSESSMENT: Functional assessment: no impairments noted. LEARNING NEEDS ASSESSMENT: The learning needs assessment revealed no barriers. SKIN INTEGRITY ASSESSMENT: Skin tears noted on the left calf. --20:32 Sheriff Bond R.N. PROBLEMS: Pneumonia. Hypomagnesemia. Diverticulitis. Muscle Spasm. Hypokalemia. Unstable Angina. Myocardial Infarction. Coronary Artery Disease. Lower Extremity Pain. Dizziness. Narcotic Withdrawal. Palpitations. Chest Pain. Lung Disease. Asthma. Depression. Diarrhea. Candidiasis. Hyponatremia. Vomiting. Pulmonary Hypertension. Gastroenteritis. Ovarian Cyst. Gastroesophageal Reflux Disease. Tension-Type Headache. Chest Wall Pain. COPD - Chronic Obstructive Pulmonary Disease. Hypertension. Constipation. Obesity. Abdominal Pain. Bipolar Disorder. Gastroesophageal Reflux. Environmental Allergies. Chronic Back Pain. Gallstone(s). Diabetes Mellitus. Immunizations. LNMP - Last Normal Menstrual Period. --20:54 Sheriff Bond R.N. ADDITIONAL SURGERIES: Cholecystectomy. --20:54 Sheriff Bond R.N. Interventions ID band on patient. To room. --20:32 Sheriff Bond R.N. PHYSICAL ASSESSMENT Ambulatory to room. GENERAL / NEURO / PSYCH: Oriented X 4. Alert. CVS: Capillary refill is greater than 3 seconds. EXTREMITIES: Limited ROM present in the right lower leg and left lower leg. Bilateral edema of the lower extremities involving both lower legs. SKIN: Skin is warm and dry. --20:34 Sheriff Bond R.N. NURSING PROGRESS NOTES Two patient identifiers checked. Call light placed in reach. Side rails up x 2. Bed placed in lowest position. Brakes of bed on. Patient ready for evaluation- chart flagged. --20:34 Sheriff Bond R.N. 21:29 12/05/2016 Site #1 started via IV in the left antecubital space with an 20g angiocath, with aseptic technique and good blood return; one attempt. Blood drawn: rainbow set. Saline lock flushed with 10 mL saline. --21:29 Sheriff Bond R.N. 22:54 12/05/16. BP: 99/56. HR: 110. RR: 18. O2 saturation: 94%. Temp: 98.1 F. Pain level now: 11/28. --22:55 Sheriff Bond R.N. 00:09 12/06/2016 Started 500 mg of Levaquin (Levofloxacin) IVPB in bag #1 100 mL; at 100 mL/hr over 1 hour(s) via site #1 via IV pump. Allergies verified and confirmed 5 rights. IV patency established. IV site checked: no pain, redness, or swelling. IV flushed thoroughly pre- and post-medication administration (500 mL NS started at 500 mL per hour with levaquin). --00:10 Chantel Luna R.N. DISPOSITION / DISCHARGE Condition at departure: stable. No learning barriers present. Discharge instructions provided and reviewed with the patient. Reviewed medication(s) side effects, precautions, dosing and course information. Prescription(s) given to the patient. Patient verbalized understanding. Written instructions provided in Croatian. The patient was discharged by the physician. She was discharged home and accompanied by family. She left the Emergency Department ambulatory and via private vehicle. Family member driving. --01:13 Sheriff Bond R.N. 01:11 12/06/16. BP: 122/68. HR: 109. RR: 18. O2 saturation: 92%. Temp: 97.9 F. Pain level now: 10/31. --01:13 Sheriff Bond R.N. 01:13 12/06/2016 Site #1 removed. Catheter intact. Bandage applied. --01:14 Sheriff Bond R.N. Locked/Released at 12/06/2016 1:14 by Sheriff Bond R.N.
== END 2016-12-06 01:14 | disposition home or self-care (01) ==
LOC: ED SRH 20:14
DX: L03.115 Cellulitis of right lower limb (principal); L03.116 Cellulitis of left lower limb; R60.0 Localized edema; I10 Essential (primary) hypertension; E11.9 Type 2 diabetes mellitus without complications; Z88.2 Allergy status to sulfonamides; Z88.0 Allergy status to penicillin; Z88.9 Allergy status to unspecified drugs, medicaments and biological substances
CPT/HCPCS: 90100; 90616; 91320; 91556; 92610; 92720; 93004; 93140; 95059